=== PATIENT | male | born 1935 | race Caucasian/White ===

== ENCOUNTER 2017-03-29 11:20 | Inpatient (IN) | payer MEDICARE ==
[2017-03-29] MEDS ORDERED: Aspirin Low Dose CHEW TAB* 81 MG PO ONE (11:25)
[2017-03-29 12:05] LABS: Hematocrit 40 % (42-52); Hemoglobin 13.3 g/dl (14.0-18.0); Mean Corpuscular HGB Conc 33 g/dl (31-36); Mean Corpuscular Hemoglobin 33 pg (27-31); Mean Corpuscular Volume 99 fL (80-94); Mean Platelet Volume 7 um3 (7.4-10.4); Red Blood Count 4.06 10^6/ul (4.0-5.4); Red Cell Distribution Width 17 % (10.5-15); White Blood Count 13.5 10^3/ul (3.5-10.8)
[2017-03-29 12:18] LABS: BUN/Creatinine Ratio 21.1 (8-20); Potassium 4.1 mmol/L (3.5-5.0)
[2017-03-29 12:19] LABS: Albumin 3.9 g/dL (3.2-5.2); Calcium 9.5 mg/dL (8.6-10.3); EGFR African American 83.5 (>60); EGFR Non-African American 64.9 (>60); Total Bilirubin 1.1 mg/dL (0.2-1.0); Total Protein 6.9 g/dL (6.4-8.9)
[2017-03-29 12:24] LABS: Troponin I 0.14 ng/mL (<0.04)
--- NOTE | 2017-03-29 12:35 | RAD ---
INDICATION: Chest pain COMPARISON: None. TECHNIQUE: Single AP portable view of the chest was obtained. FINDINGS: Image quality is compromised due to the relative inferiority of a portable chest x-ray. There is moderate cardiomegaly as well as calcification overlying the arch of the aorta. The pulmonary vasculature appears engorged and indistinct. There is faint increased cortical density bilaterally. There is bibasilar costophrenic angle blunting. Visualized bones are normal for the patient's age. IMPRESSION: In the correct clinical setting the chest x-ray findings are most consistent with cardiogenic pulmonary edema.
[2017-03-29 13:05] LABS: T4 7.38 mcg/mL (6.09-12.23)
[2017-03-29 13:09] LABS: TSH (Thyroid Stimulating Horm) 2.38 mcIU/mL (0.34-5.60)
[2017-03-29] MEDS ORDERED: Propranolol TAB* 60 MG PO SCH (14:00)
[2017-03-29] MEDS ORDERED: Furosemide IV* 10 MG/ML VIAL (40 MG) IV SCH (14:00)
[2017-03-29] MEDS: Allopurinol TAB* 300 MG PO SCH (14:32)
[2017-03-29] MEDS: Apixaban* 5 MG TAB PO SCH ×2 (14:32→19:45)
[2017-03-29] MEDS: Ziprasidone * 20 MG CAP (generic Geodon) PO SCH ×2 (14:32→22:36)
[2017-03-29] MEDS: Polyethylene Glycol 3350* 17 GM PACKET PO SCH (14:32)
[2017-03-29] MEDS: Metoprolol Tartrate TAB* 25 MG PO SCH ×2 (14:49→23:47)
[2017-03-29 15:02] LABS: HDL Cholesterol 41.2 mg/dL
[2017-03-29 15:37] LABS: Urine Bacteria Absent (Absent); Urine Bilirubin Negative (Negative); Urine Glucose Negative (Negative); Urine Nitrite Negative (Negative)
[2017-03-29] MEDS ORDERED: cefTRIAXone VIAL(*) 1,000 MG in NS 0.9% 50 ML* 50 ML IVPB SCH (16:30)
[2017-03-29] MEDS: Atorvastatin* 80 MG TAB PO SCH ×2 (16:56→17:03)
[2017-03-29] MEDS ORDERED: Atorvastatin* 20 MG TAB PO SCH (18:00)
--- NOTE | 2017-03-29 18:18 | ED ---
Sebastian Rosa Angela, scribed for Michael Rivas MD on 03/29/17 at 1205 . Neurological HPI - HPI Summary HPI Summary: This pt is a 81 y/o male presenting to [facility] via EMS from home c/o increased weakness for the past several weeks. He reports he couldn't get off the toilet seat this morning. Son states that last night before bed the pt was panting and clearing his throat a lot. This morning, son notes the pt continued to pant. Son reports that he tried getting the pt off the toilet this morning with a towel but noticed the pt's legs were shaking and couldn't ambulate with his walker. Per son, pt normally drinks a glass of cranberry juice and eats a bowel of cereal in the mornings. Son states he also typically drinks a glass of milk with his dinner. Son notes that the pt has not been finishing all of his fluids every day. Pt usually gets up from bed at 10:00 everyday. Pt is anticoagulated on Eliquis. PMHx includes atrial fibrillation. - History of Current Complaint Chief Complaint: EDWeakness Stated Complaint: AFIB Time Seen by Provider: 03/29/17 11:25 Hx Obtained From: Patient Onset/Duration: Started days ago, Still Present, Worse Since - today Timing: Constant Neurological Deficit Location: Generalized, RLE, LLE Pain Intensity: 0 Character: Weak Associated Signs and Symptoms: Positive: Weakness, Decreased Oral Intake - fluids. Negative: Loss of Consciousness Related Hx: Anticoagulants - Eliquis - Allergy/Home Medications Allergies/Adverse Reactions: Allergies Allergy/AdvReac Type Severity Reaction Status Date / Time No Known Allergies Allergy Verified 03/29/17 11:27 Home Medications: Home Medications Allopurinol TAB* [Zyloprim 300 MG TAB*] 300 mg PO DAILY 03/29/17 [History Confirmed 03/29/17] Apixaban* [Eliquis*] 5 mg PO BID 03/29/17 [History Confirmed 03/29/17] Atorvastatin* [Lipitor*] 20 mg PO QPM 03/29/17 [History Confirmed 03/29/17] DULoxetine DR CAP* [Cymbalta CAP*] 60 mg PO DAILY 03/29/17 [History Confirmed ] Eszopiclone TAB(NF) [Lunesta TAB(NF)] 3 mg PO BEDTIME 03/29/17 [History Confirmed 03/29/17] Famotidine TAB* [Pepcid 20 MG TAB*] 40 mg PO BEDTIME 03/29/17 [History Confirmed 03/29/17] Hydrocodone-Acetaminophen [Hydrocodone Bitartrate/AC 7.5-325 mg] 1 tab PO Q6HR 03/29/17 [History Confirmed 03/29/17] Mirtazapine TAB* [Remeron TAB*] 60 mg PO BEDTIME 03/29/17 [History Confirmed 06/14] Polyethylene Glycol 3350* [Miralax*] 17 gm PO DAILY 03/29/17 [History Confirmed 03/29/17] Propranolol TAB* [Inderal TAB*] 60 mg PO DAILY 03/29/17 [History Confirmed 03/29] Ramipril CAP* [Altace CAP*] 20 mg PO BEDTIME 03/29/17 [History Confirmed ] Ziprasidone * [Geodon (generic) *] 40 mg PO BID 03/29/17 [History Confirmed 06/14] celeCOXIB CAP* [CeleBREX CAP*] 200 mg PO DAILY 03/29/17 [History Confirmed 03/29] PMH/Surg Hx/FS Hx/Imm Hx Endocrine/Hematology History: Reports: Hx Diabetes Cardiovascular History: Reports: Hx Atrial Fibrillation, Hx Hypertension Musculoskeletal History: Reports: Hx Gout Psychiatric History: Reports: Hx Anxiety, Hx Depression Infectious Disease History: No Infectious Disease History: Denies: Traveled Outside the [place] in Last 30 Days - Social History Alcohol Use: None Substance Use Type: Reports: None Smoking Status (MU): Never Smoked Tobacco Review of Systems Constitutional: Other - decreased fluid intake Negative: Fever, Chills Eyes: Negative ENT: Negative Negative: Chest Pain Respiratory: Other - panting Musculoskeletal: Other - legs shaking Neurological: Other - inability to ambulate Positive: Weakness All Other Systems Reviewed And Are Negative: Yes Physical Exam - Summary Physical Exam Summary: VITAL SIGNS: Reviewed. GENERAL: Patient is an elderly and fragile male who is lying comfortable in the stretcher. Patient is not in any acute respiratory distress. HEAD AND FACE: No signs of trauma. No ecchymosis, hematomas or skull depressions. No sinus tenderness. EYES: PERRLA, EOMI x 2, No injected conjunctiva, no nystagmus. EARS: Hearing grossly intact. Ear canals and tympanic membranes are within normal limits. MOUTH: Oropharynx within normal limits. NECK: Supple, trachea is midline, no adenopathy, no JVD, no carotid bruit, no c- spine tenderness, neck with full ROM. CHEST: Symmetric, no tenderness at palpation LUNGS: Clear to auscultation bilaterally. No wheezing or crackles. CVS: Irregularly irregular rate and rhythm, S1 and S2 present, no murmurs or gallops appreciated. ABDOMEN: Soft, non-tender. No signs of distention. No rebound no guarding, and no masses palpated. Bowel sounds are normal. EXTREMITIES: FROM in all major joints, no edema, no cyanosis or clubbing. NEURO: Alert and oriented x 3. No acute neurological deficits. Speech is normal and follows commands. SKIN: Dry and warm Triage Information Reviewed: Yes Vital Signs On Initial Exam: Initial Vitals Temp Pulse Resp BP Pulse Ox 98.4 F 64 17 170/62 89 03/29/17 11:26 03/29/17 11:26 03/29/17 11:26 03/29/17 11:26 03/29/17 11:26 Vital Signs Reviewed: Yes Diagnostics - Vital Signs Vital Signs Temp Pulse Resp BP Pulse Ox 03/29/17 11:26 98.4 F 64 17 170/62 89 - Laboratory Lab Results: Lab Results 03/29/17 03/29/17 03/29/17 Range/Units 11:49 11:49 11:49 WBC 13.5 H (3.5-10.8) 10^3/ul RBC 4.06 (4.0-5.4) 10^6/ul Hgb 13.3 L (14.0-18.0) g/dl Hct 40 L (42-52) % MCV 99 H (80-94) fL MCH 33 H (27-31) pg MCHC 33 (31-36) g/dl RDW 17 H (10.5-15) % Plt Count 183 (150-450) 10^3/ul MPV 7 L (7.4-10.4) um3 Neut % (Auto) 85.8 H (38-83) % Lymph % (Auto) 8.4 L (25-47) % Person % (Auto) 5.0 (1-9) % Eos % (Auto) 0.3 (0-6) % Baso % (Auto) 0.5 (0-2) % Absolute Neuts (auto) 11.6 H (1.5-7.7) 10^3/ul Absolute Lymphs (auto) 1.1 (1.0-4.8) 10^3/ul Absolute Monos (auto) 0.7 (0-0.8) 10^3/ul Absolute Eos (auto) 0 (0-0.6) 10^3/ul Absolute Basos (auto) 0.1 (0-0.2) 10^3/ul Absolute Nucleated RBC 0 10^3/ul Nucleated RBC % 0 INR (Anticoag Therapy) 1.25 H (0.77-1.02) APTT 27.1 (26.0-36.3) seconds Sodium (133-145) mmol/L Potassium (3.5-5.0) mmol/L Chloride (101-111) mmol/L Carbon Dioxide (22-32) mmol/L Anion Gap (2-11) mmol/L BUN (6-24) mg/dL Creatinine (0.67-1.17) mg/dL Est GFR ( Amer) (>60) Est GFR (Non-Af Amer) (>60) BUN/Creatinine Ratio (8-20) Glucose (70-100) mg/dL Lactic Acid (0.5-2.0) mmol/L Calcium (8.6-10.3) mg/dL Total Bilirubin (0.2-1.0) mg/dL AST (13-39) U/L ALT (7-52) U/L Alkaline Phosphatase (34-104) U/L Total Creatine Kinase (10-223) U/L CK-MB (CK-2) (0.6-6.3) ng/mL Troponin I (<0.04) ng/mL B-Natriuretic Peptide 512 H ( - 100) pg/mL Total Protein (6.4-8.9) g/dL Albumin (3.2-5.2) g/dL Globulin (2-4) g/dL Albumin/Globulin Ratio (1-3) TSH (0.34-5.60) mcIU/mL Thyroxine (T4) (6.09-12.23) mcg/mL 03/29/17 03/29/17 Range/Units 11:49 11:49 WBC (3.5-10.8) 10^3/ul RBC (4.0-5.4) 10^6/ul Hgb (14.0-18.0) g/dl Hct (42-52) % MCV (80-94) fL MCH (27-31) pg MCHC (31-36) g/dl RDW (10.5-15) % Plt Count (150-450) 10^3/ul MPV (7.4-10.4) um3 Neut % (Auto) (38-83) % Lymph % (Auto) (25-47) % Person % (Auto) (1-9) % Eos % (Auto) (0-6) % Baso % (Auto) (0-2) % Absolute Neuts (auto) (1.5-7.7) 10^3/ul Absolute Lymphs (auto) (1.0-4.8) 10^3/ul Absolute Monos (auto) (0-0.8) 10^3/ul Absolute Eos (auto) (0-0.6) 10^3/ul Absolute Basos (auto) (0-0.2) 10^3/ul Absolute Nucleated RBC 10^3/ul Nucleated RBC % INR (Anticoag Therapy) (0.77-1.02) APTT (26.0-36.3) seconds Sodium 141 (133-145) mmol/L Potassium 4.1 (3.5-5.0) mmol/L Chloride 107 (101-111) mmol/L Carbon Dioxide 27 (22-32) mmol/L Anion Gap 7 (2-11) mmol/L BUN 23 (6-24) mg/dL Creatinine 1.09 (0.67-1.17) mg/dL Est GFR ( Amer) 83.5 (>60) Est GFR (Non-Af Amer) 64.9 (>60) BUN/Creatinine Ratio 21.1 H (8-20) Glucose 144 H (70-100) mg/dL Lactic Acid 1.6 (0.5-2.0) mmol/L Calcium 9.5 (8.6-10.3) mg/dL Total Bilirubin 1.10 H (0.2-1.0) mg/dL AST 19 (13-39) U/L ALT 18 (7-52) U/L Alkaline Phosphatase 84 (34-104) U/L Total Creatine Kinase 65 (10-223) U/L CK-MB (CK-2) 2.6 (0.6-6.3) ng/mL Troponin I 0.14 H* (<0.04) ng/mL B-Natriuretic Peptide ( - 100) pg/mL Total Protein 6.9 (6.4-8.9) g/dL Albumin 3.9 (3.2-5.2) g/dL Globulin 3.0 (2-4) g/dL Albumin/Globulin Ratio 1.3 (1-3) TSH 2.38 (0.34-5.60) mcIU/mL Thyroxine (T4) 7.38 (6.09-12.23) mcg/mL Result Diagrams: 03/29/17 11:49 03/29/17 11:49 Lab Statement: Any lab studies that have been ordered have been reviewed, and results considered in the medical decision making process. - Radiology Chest XR Xray Interpretation: Positive (See Comments) - IMPRESSION: In the correct clinical setting the chest x-ray findings are most consistent with cardiogenic pulmonary edema. ED physician has reviewed this radiology report and agrees. Radiology Interpretation Completed By: Radiologist - EKG 1131 Cardiac Rate: NL EKG Rhythm: Atrial Fibrillation - at 60 bpm EKG Interpretation: Right bundle branch block Course/Dx - Course Assessment/Plan: This pt is a 81 y/o male presenting to [facility] via EMS from home c/o increased weakness for the past several weeks. He reports he couldn't get off the toilet seat this morning. Son states that last night before bed the pt was panting and clearing his throat a lot. This morning, son notes the pt continued to pant. Son reports that he tried getting the pt off the toilet this morning with a towel but noticed the pt's legs were shaking and couldn't ambulate with his walker. Per son, pt normally drinks a glass of cranberry juice and eats a bowel of cereal in the mornings. Son states he also typically drinks a glass of milk with his dinner. Son notes that the pt has not been finishing all of his fluids every day. Pt usually gets up from bed at 10:00 everyday. Pt is anticoagulated on Eliquis. PMHx includes atrial fibrillation. Test results without any significant abnormalities except for slight anemia, WBC of 13.5, glucose of 144, and troponin is 0.14. Urinalysis is negative for UTI. Chest XR shows in the correct clinical setting the chest x-ray findings are most consistent with cardiogenic pulmonary edema. In the ED course, the pt was given IV fluids. The pt continues to be hemodynamically stable. I discussed my findings and test results with Dr. Cohen, hospitalist, who accepted the pt for admission. Pt is hemodynamically stable and pain free. - Differential Dx Differential Diagnoses Neuro: Positive: Benign Paroxysmal Positional Vertigo, Transient Ischemic Attack, Viral Syndrome - Diagnoses Provider Diagnoses: increased troponin, rule out acute coronary syndrome, Weakness - Physician Notifications Discussed Care Of Patient With: Ángel Cohen Time Discussed With Above Provider: 12:29 Instructed by Provider To: Other - I discussed the pt's case with Dr. Cohen, who has agreed to admit the pt. Discharge - Discharge Plan Condition: Stable Disposition: ADMITTED TO [facility] The documentation as recorded by the Sebastian mazariegos Angela accurately reflects the service I personally performed and the decisions made by me, Michael Rivas MD.
--- NOTE | 2017-03-29 18:42 | HP ---
HISTORY AND PHYSICAL: DATE OF ADMISSION: 03/29/17 ADMITTING PROVIDER: Ángel Cohen MD. PRIMARY CARE PHYSICIAN: Dr. Marty Robertson CHIEF COMPLAINT: Inability to rise from toilet, shortness of breath, progressive weakness. HISTORY OF PRESENT ILLNESS: Ash Kirk is an 81-year-old male with a past medical history of atri al fibrillation, GERD, anxiety, depression, with history of suicide attempt 3 years ago, evidence of an inferior myocardial infarction, insomnia, former smoker, former alcoholic, gout, presenting with i nability to rise from his toilet on the morning of admission. He reportedly had gotten progressively weaker over the last few days. The patient also notes that he was "panting and short of breath" sta rting the day prior to admission or 2 days prior to admission. He has had no bowel movements for the last 5 to 6 days. When EMS arrived, he was noted to be desatting at 91% to 86%, put on 2 L. He den ies any chest pressure or chest pain or radiation of pain to the arms, neck, or jaw. No nausea or vo miting, but he did have a general sense of feeling unwell that he was unable to further describe. He does not like to ambulate often per his caregiver, Sung Blanco, who has lived with him for the last 3 years and cared for him for the last 5 to 6. His routine is basically to get up in the morning, errol payton a meal, sit in his chair, have dinner, go to bed around 5 p.m. until the next day 10 a.m., though shira payton does have restless sleep. He stays so much time in bed because it "keeps him from drinking alcohol " and is asking for a double dose of his Lunesta 3 mg q.h.s. Upon presentation to [facility] ED, he did hav e elevated troponin at 0.14, evidence of inferior infarction, with Q waves in III and aVF. A right b undle- branch block, left axis deviation, and atrial fibrillation. He denies any palpitations or kno wn RVR episodes. He is on Eliquis, having switched from Coumadin approximately a few months ago. On ly other change was doubling of his Geodon dose for some sensations of tremors, which also now is wor se this morning than baseline. The patient has a hospital bed at home in which he sleeps in a reclined position. He is very uncomfor table lying down flat. Vital signs are blood pressure 170/62, respiratory rate 25, heart rate 56, temperature 98.5, but 99.6 initially with EMS. His BNP was elevated to 512. He is being admitted for CHF and elevated troponi n, with ACS rule out. PAST SURGICAL HISTORY: Status post appendectomy and cataract surgery. 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 Denies seeing any specialist for any reason. MEDICATIONS: Include: 1. Ramipril 20 mg q.p.m. 2. Propranolol 60 mg q.a.m. 3. Ziprasidone HCl 40 mg b.i.d. 4. Mirtazapine 60 mg q.p.m. 5. Famotidine 40 mg p.m. 6. Celecoxib 200 mg q.a.m. 7. Hydrocodone/Acetaminophen 7.5/325 p.r.n. 8. Eliquis 5 mg b.i.d. 9. Lunesta 3 mg q.p.m. 10. Allopurinol 300 mg q.a.m. 11. Atorvastatin 20 mg q.p.m. 12. Duloxetine HCl 60 mg q.p.m. 13. Polyethylene glycol p.r.n. ALLERGIES: No known drug allergies. FAMILY HISTORY: Dad had a heart attack. Mother of end-stage renal disease after refusing trans plant. SOCIAL HISTORY: Lives with caregiver, Sung Blanco. His medical surrogate is Az Kirk, his cous in. He lives in [place], [place]. Former heavy smoker, as teenager, between 90 and 530-utic-xyyc hi story, max was 5 packs per day. He also is a former alcoholic, stopped drinking some time ago. REVIEW OF SYSTEMS: Complete 14-point review of systems is negative, except as per HPI. PHYSICAL EXAMINATION GENERAL APPEARANCE: No acute distress. Sitting in hospital bed, with unlabored breathing. VITAL SIGNS: Blood pressure 170/62, respiratory rate between 17 and 25, temperature 98.4, satting 89 % initially, currently on 2 L nasal cannula satting 95%. HEENT: Normocephalic, atraumatic. Pupils are equal, round, and reactive to light. Extraocular motio ns are intact. No cervical lymphadenopathy. Moist mucous membranes. RESPIRATORY: Rales bilaterally to mid lungs. No rhonchi or wheezing. CARDIOVASCULAR: Regular rate and rhythm. No murmurs, rubs or gallops appreciated. ABDOMEN: Soft, distended/obese. No tenderness to palpation, status post appendectomy scar in the ri ght lower quadrant. No rebound. No guarding. EXTREMITIES: 2+ bilateral edema up the shins. Warm. PSYCHIATRIC: Nonpressured speech. Attests that if he had a pistol, he probably would consider endin g his life, but has no other active plans. He has lived a content life and has no hobbies that he cu rrently derives pleasure from. Would never hurt anyone he says. SKIN: Slight abrasions to the right lower anterior varela, very mild. No erythema, warmth or tenderne ss. DIAGNOSTIC STUDIES/LAB DATA: White count 13.5, hemoglobin 13.3, hematocrit 40, platelets 193. INR 1.25. Sodium 141, potassium 4.1, chloride 107, BUN 23, creatinine 1.09, glucose 144. Lactic acid 1. 6. Total bili 1.10, AST 19, ALT 18, alk phos 84. Troponin 0.14. BNP 512. TSH 2.38, T4 is 7.38. X-ray was consistent with cardiogenic pulmonary edema with bibasilar costophrenic angle blunting and engorged pulmonary vasculature. EKG demonstrated inferior Q waves in III and aVF, left axis deviation, right bundle- branch block, QR interval 136. No other ST changes. ASSESSMENT AND PLAN: Ash Kirk is an 81-year-old male with PMH at least of an inferior heart att ack and AFib, presenting with signs and symptoms of congestive heart failure, initial complaint of we akness and generally feeling unwell, elevated troponin of 0.14. This is the first time he has been i n our system, although he reports admission for suicide attempt 3 years ago. He does have short term memory issues, mild dementia. He is being admitted for CHF and ACS rule out, initial troponin 0.14, no acute ischemic changes. We will get that echocardiogram ordered, Lasix 40 mg IV, use strict I's and O's, daily weights. We will continue his propranolol beta-gabe, he is status post aspirin 324 mg in the emergency room, we will continue 81 mg daily. The patient denies any chest pain or pressu re at the moment, just some shortness of breath. Continue his atorvastatin 20 mg daily. Get a lipid panel now as he has not eaten since last night and A1c. He is hypertensive, continue his ramipril 2 0 mg at bedtime. For his AFib, continue his Eliquis 5 mg p.o. b.i.d. For gout, continue his allopur inol 300 mg p.o. daily. For his constipation, with no bowel movement in 5 to 6 days, continue his vasquez e MiraLAX. Start Colace and Senokot tabs and consider additional bowel regimen if these are not effe ctive by the end of today. He is going to be ordered for physical therapy. He is expressing a imelda e to move to a fdc as he says, "I can't handle things like this". On further inquiry, this is the first time he has been hospitalized in the last 3 years since his suicide attempt, though he i s a somewhat poor historian, especially in regard to timelines, although he is oriented to the [address] His medical surrogate is his cousin, Az Kirk. He desires to be at DNR/DNI. He does not have a MOLST form with him currently. He could have another EKG in the morning or with any evidence of chest pain developing. He can have sips of water for now. Consider restarting a diet l ater on this afternoon if still chest pain free, but likely n.p.o. at midnight for possible stress te st tomorrow if indicated. For his anxiety and depression, continue his Geodon 40 mg p.o. b.i.d. and his Remeron 60 mg q.h.s. For his insomnia, continue 3 mg p.o. Lunesta q.h.s. Also continue his dulo xetine 60 mg p.o. daily for his depression. [id number]/[facility] #: [id number]
[2017-03-29] MEDS ORDERED: Furosemide IV* 10 MG/ML VIAL (40 MG) ONE (18:57)
[2017-03-29] MEDS ORDERED: Albuterol 2.5 MG/3 ML NEB.SOL* (0.083%) ONE (18:58)
[2017-03-29 19:22] LABS: Hematocrit 40 % (42-52); Mean Corpuscular HGB Conc 33 g/dl (31-36); Mean Corpuscular Hemoglobin 33 pg (27-31); Mean Corpuscular Volume 100 fL (80-94); Mean Platelet Volume 8 um3 (7.4-10.4); Red Blood Count 3.95 10^6/ul (4.0-5.4); Red Cell Distribution Width 17 % (10.5-15); White Blood Count 16.4 10^3/ul (3.5-10.8)
--- NOTE | 2017-03-29 19:22 | RAD ---
INDICATION: Shortness of breath. COMPARISON: Same day chest x-ray acquired at 1152 hours TECHNIQUE: Single AP portable view of the chest was obtained at 1908 hours. FINDINGS: Image quality is compromised due to the relative inferiority of a portable chest x-ray. Again seen is [id number] cardiomegaly and coarse calcification overlying the arch of the aorta. Pulmonary vasculature is indistinct and mildly engorged. The left hemidiaphragm is faintly indistinct. IMPRESSION: Chest x-ray findings are most consistent with cardiogenic pulmonary edema with no significant change since the 1152 hours chest x-ray.
[2017-03-29 19:25] LABS: BUN/Creatinine Ratio 18.3 (8-20); Calcium 9.6 mg/dL (8.6-10.3); EGFR African American 70.6 (>60); EGFR Non-African American 54.9 (>60); Globulin 3.3 g/dL (2-4); Potassium 4.7 mmol/L (3.5-5.0); Total Bilirubin 0.9 mg/dL (0.2-1.0); Total Protein 7.3 g/dL (6.4-8.9)
[2017-03-29 19:27] LABS: Troponin I 0.19 ng/mL (<0.04)
[2017-03-29] MEDS ORDERED: Vancomycin per Pharmacy* NOTE FOLLOW UP PRN (19:28)
[2017-03-29] MEDS: Cefepime(*) 1 GM in NS 0.9% 50 ML* 50 ML IVPB SCH (19:40)
[2017-03-29 19:41] LABS: EPAP 10; FIO2 100; IPAP 18
[2017-03-29] MEDS ORDERED: Albuterol 2.5 MG/3 ML NEB.SOL* (0.083%) INH ONE (19:42)
[2017-03-29 19:45] LABS: PCO2 Arterial 35 mmHg (35-45)
[2017-03-29] MEDS ORDERED: Vancomycin(*) 1,500 MG in NS 0.9% 250 ML* 250 ML IVPB ONE (20:00)
[2017-03-29] MEDS ORDERED: Acetaminophen TAB* 325 MG ONE (20:05)
[2017-03-29] MEDS ORDERED: Bisacodyl SUPP* 10 MG SUPP PR ONE (20:13)
[2017-03-29] MEDS: Zolpidem TAB* 10 MG PO SCH (20:41)
[2017-03-29] MEDS: Famotidine TAB* 20 MG PO SCH (20:41)
[2017-03-29] MEDS: Mirtazapine TAB* 15 MG PO SCH (20:41)
[2017-03-29] MEDS ORDERED: Ramipril CAP* 10 MG PO SCH (21:00)
[2017-03-30] MEDS: Nystatin TOP POWDER* 15 GM BTL TOPICAL SCH ×3 (00:13→20:45)
[2017-03-30] MEDS: Furosemide IV* 10 MG/ML VIAL (40 MG) IV SLOW PU SCH ×2 (01:11→05:50)
--- NOTE | 2017-03-30 05:51 | PN ---
Progress Note - Progress Note Date of Service: 03/30/17 Note: Paged for crackles, increase wob and altered mental status. Patient alerts to voice but unable to communicate. Coarse rhonchorous breath sounds b/l. Will give Lasix 7am dose now, get abg and put on Bipap. If he does not tolerate bipap will switch to vapotherm.
[2017-03-30] MEDS ORDERED: Vancomycin Random Level* NOTE FOLLOW UP ONE (06:00)
[2017-03-30 06:05] LABS: PCO2 Arterial 44 mmHg (35-45)
[2017-03-30 06:46] LABS: Hematocrit 37 % (42-52); Mean Corpuscular HGB Conc 33 g/dl (31-36); Mean Corpuscular Hemoglobin 33 pg (27-31); Mean Corpuscular Volume 99 fL (80-94); Mean Platelet Volume 8 um3 (7.4-10.4); Red Blood Count 3.69 10^6/ul (4.0-5.4); Red Cell Distribution Width 17 % (10.5-15)
[2017-03-30 06:58] LABS: EGFR African American 81.8 (>60); EGFR Non-African American 63.6 (>60); Vancomycin Random 10.8 mcg/mL
[2017-03-30 07:54] LABS: Calcium 7.7 mg/dL (8.6-10.3); Potassium 3.2 mmol/L (3.5-5.0)
[2017-03-30 08:18] LABS: BUN/Creatinine Ratio 18.9 (8-20)
[2017-03-30 08:46] LABS: Magnesium 1.5 mg/dL (1.9-2.7)
[2017-03-30] MEDS ORDERED: Vancomycin(*) 750 MG in NS 0.9% 250 ML* 250 ML IVPB SCH (09:00)
[2017-03-30] MEDS ORDERED: DULoxetine DR CAP* 30 MG CAP.DR PO SCH (09:00)
[2017-03-30] MEDS: Ziprasidone * 20 MG CAP (generic Geodon) PO SCH ×2 (09:17→20:45)
[2017-03-30] MEDS: Polyethylene Glycol 3350* 17 GM PACKET PO SCH (09:18)
[2017-03-30] MEDS: Aspirin Low Dose CHEW TAB* 81 MG PO SCH (09:18)
[2017-03-30] MEDS: Cefepime(*) 1 GM in NS 0.9% 50 ML* 50 ML IVPB SCH (09:18)
[2017-03-30] MEDS: KCL 20 MEQ/100 ML IVPREMIX* 20 MEQ/100 ML BAG IV SCH ×2 (09:19→12:09)
[2017-03-30] MEDS ORDERED: Magnesium Sulfate IV* 3 GM in NS 0.9% 100 ML* 100 ML IVPB ONE (10:17)
[2017-03-30] MEDS ORDERED: Magnesium Sulfate 2 GM IV IVPB ONE (11:00)
[2017-03-30] MEDS ORDERED: Magnesium Sulfate 1 GM IV* 1 GM/100 ML BAG IV ONE (12:00)
[2017-03-30] MEDS: Allopurinol TAB* 300 MG PO SCH (12:09)
[2017-03-30] MEDS: Bumetanide IV* 0.25 MG/ML 4 ML VIAL SLOW PUSH SCH ×3 (12:09→23:19)
[2017-03-30] MEDS: Potassium Chlor TAB* 20 MEQ TAB.ER PO SCH ×2 (12:10→14:58)
--- NOTE | 2017-03-30 15:24 | ECHO ---
Patient: JERMAINE ALM [facility] Rec#: [id number] : 1935 Date: 03/30/2017 Age: 81y Height: 182.88 cm / 72.0 in Weight: 122.47 kg / 269.9 lbs Sex: M BSA: 2.42 Room#: [facility] Admit Date#: 03/29/2017 Type: Inpatient Referring: Ángel Cohen Reading: Deni Dominguez MD Application Security Specialist: Anusha [facility]UN[facility] Transthoracic Echocardiogram Indication: Acute CHF BP: 123/95 HR: 56 Rhythm: Bradycardia Findings History: A-Fib, former smoker, former ETOH. Technical Comments: The study quality is fair. The study is technically limited due to patient body habitus. Completed at 1015. Left Ventricle: The left ventricular chamber size is normal. Severe concentric left ventricular hypertrophy is observed. There is global hypokinesis of the left ventricle with minor regional variation.relative hypokinesis of the inferobasal segments comparted to the other regions. There is moderately decreased left ventricular systolic function. The estimated ejection fraction is 40-45%. There is septal flattening of the interventricular septum consistent with right ventricular volume or pressure overload. There is no consistent Doppler evidence of clinically significant diastolic dysfunction. Left Atrium: The left atrium is severely dilated. Right Ventricle: The right ventricle wall thickness is mildly increased. The right ventricle is moderate to severely dilated. The right ventricular global systolic function is mildly reduced. Right Atrium: The right atrial cavity size is severely dilated. Aortic Valve: The aortic valve is trileaflet. The aortic valve leaflets are mildly thickened. There is trace to mild aortic regurgitation. There is no evidence of aortic stenosis. Mitral Valve: The mitral valve leaflets are mildly thickened. There is mild mitral regurgitation. There is no evidence of mitral stenosis. Tricuspid Valve: The tricuspid valve leaflets are normal. There is moderate tricuspid regurgitation. The right ventricular systolic pressure is estimated at 56 mmHg. There is evidence of moderate pulmonary hypertension. There is no tricuspid stenosis. Pulmonic Valve: The pulmonic valve appears normal. There is a trace pulmonic regurgitation. There is no pulmonic stenosis. Pericardium: There is no significant pericardial effusion. A pericardial fat pad is visualized. Aorta: There is mild dilatation of the ascending aorta. There is no dilatation of the aortic arch. There is mild dilatation of the aortic root. Pulmonary Artery: The main pulmonary artery appears normal. Venous: The inferior vena cava is dilated. There is a greater than 50% respiratory change in the inferior vena cava dimension. Summary: There was not any prior study for comparison. Conclusions There is global hypokinesis of the left ventricle with minor regional variation; relative hypokinesis of the inferobasal segments comparted to the other regions. There is moderately decreased left ventricular systolic function. The estimated ejection fraction is 40-45%. There is septal flattening of the interventricular septum consistent with right ventricular volume or pressure overload. The left atrium is severely dilated. The right ventricle wall thickness is mildly increased. The right ventricle is moderate to severely dilated. The right ventricular global systolic function is mildly reduced. The right atrial cavity size is severely dilated. The aortic valve leaflets are mildly thickened. There is trace to mild aortic regurgitation. There is mild mitral regurgitation. There is moderate tricuspid regurgitation. The right ventricular systolic pressure is estimated at 56 mmHg. There is evidence of moderate pulmonary hypertension. There is mild dilatation of the ascending aorta. There is mild dilatation of the aortic root. Measurements Name Value Normal Range RVIDd (AP) 2D 3.3 cm (0.9 - 2.6) RVDdMajor (2D) 5.9 cm (2.2 - 4.4) RAd ISD 4CH 7.7 cm (3.4 - 4.9) RA (A4C)W 6 cm (2.9 - 4.6) IVSd (2D) 1.8 cm (0.6 - 1) LVPWd (2D) 1.7 cm (0.6 - 1) LVIDd (2D) 3.8 cm (3.6 - 5.4) LVIDs (2D) 2.9 cm - LV FS (2D) 23 % (25 - 45) Aortic Annulus 2.3 cm (1.4 - 2.6) Ao root diameter (2D) 3.6 cm (2.1 - 3.5) Ascending Ao 3.8 cm (2.1 - 3.4) Aortic arch 2.9 cm (1.8 - 3.4) LA dimension (AP) 2D 4.6 cm (2.3 - 3.8) LAd ISD 4CH 7.9 cm (2.9 - 5.3) LA ISD 4CH W 6.2 cm (2.5 - 4.5) Name Value Normal Range LA ESV SP 4CH (A/L) 188 ml - LA ESV SP 2CH (A/L) 167 ml - LA ESV BP (A/L) 186 ml - LA ESV BP (A/L) index 77 ml/m2 - LA ESV SP 4CH (MOD) 177 ml - LA ESV SP 2CH (MOD) 149 ml - Name Value Normal Range MV E-wave Vmax 0.73 m/sec - MV deceleration time 260.65 msec - MV A-wave Vmax 0.2 m/sec - MV E:A ratio 3.6 ratio - LV septal e' Vmax 0.05 m/sec - LV lateral e' Vmax 0.06 m/sec - LV E:e' septal ratio 14.6 ratio - LV E:e' lateral ratio 12.17 ratio - Name Value Normal Range AV Vmax 1.16 m/sec - AV VTI 20.17 cm - AV peak gradient 5.41 mmHg - AV mean gradient 2.73 mmHg - LVOT Vmax 0.82 m/sec - LVOT VTI 13.58 cm - LVOT peak gradient 2.72 mmHg - LVOT mean gradient 1.34 mmHg - LARRY Vmax 0.61 m/sec - Name Value Normal Range TR Vmax 3.2 m/sec - TR peak gradient 41 mmHg - RAP 15 mmHg - RVSP 56 mmHg - IVC diameter 2.6 cm - Name Value Normal Range PV Vmax 0.82 m/sec - PV peak gradient 2.72 mmHg -
[2017-03-30] MEDS: Atorvastatin* 80 MG TAB PO SCH (18:36)
[2017-03-30] MEDS: Cefepime 1 GM in Dextrose(*) 1 GM/50 ML BAG IV SCH (20:16)
[2017-03-30] MEDS: Famotidine TAB* 20 MG PO SCH (20:45)
[2017-03-30] MEDS: Zolpidem TAB* 10 MG PO SCH (20:45)
[2017-03-30] MEDS: Mirtazapine TAB* 15 MG PO SCH (20:45)
[2017-03-30] MEDS: Acetaminophen TAB* 325 MG PO PRN (21:27)
--- NOTE | 2017-03-30 23:46 | PN ---
Subjective Date of Service: 03/30/17 Interval History: hematuria then CAT call yesterday for acute hypoxia, rigors and eventually ( high fevers by urine probe but not skin probe) at shift change, transferred to ICU, started on cefepime, vancomycin. Lactic acidosis with improvement. Aggressively diuresed, negative 2L. Eliquis held. Wet sounding and more somulent at 5am, got lasix 1 hour early, put on bipap. ABG 7.44/44/179. Able to come off by mid morning. Feeling much better. Procalcitonin very high. Ecoli >100K on UCx. Fevers continue. ECHO with LVH, EF 40-45%, RV pressure or volume overload, mod TVR. Objective Active Medications: Acetaminophen (Tylenol Tab*) 650 mg PO Q6H PRN PRN Reason: FEVER Last Admin: 03/30/17 21:27 Dose: 650 mg Hydrocodone Bitart/Acetaminophen (Ham[place] 5-325 Tab*) 1 tab PO Q6H PRN PRN Reason: PAIN Allopurinol (Zyloprim Tab*) 300 mg PO DAILY [facility] Last Admin: 03/30/17 12:09 Dose: 300 mg Aspirin (Aspirin Low Dose Tab*) 81 mg PO DAILY [facility] Last Admin: 03/30/17 09:18 Dose: 81 mg Atorvastatin Calcium (Lipitor*) 80 mg PO 1700 [facility] Last Admin: 03/30/17 18:36 Dose: 80 mg Bumetanide (Bumex*) 2 mg SLOW PUSH Q6H [facility] Duloxetine HCl (Cymbalta Cap*) 60 mg PO DAILY [facility] Stop: 03/30/17 23:59 Last Admin: 03/30/17 12:52 Dose: 60 mg Duloxetine HCl (Cymbalta Cap*) 60 mg PO DAILY [facility] Famotidine (Pepcid Tab*) 40 mg PO BEDTIME [facility] Last Admin: 03/30/17 20:45 Dose: 40 mg Cefepime HCl (Maxipime 1 Gm In Dextrose Duplex (*)) 1 gm in 50 mls @ 100 mls/ hr IV Q12H [facility] Last Admin: 03/30/17 20:16 Dose: 100 mls/hr Mirtazapine (Remeron Tab*) 45 mg PO BEDTIME [facility] Last Admin: 03/30/17 20:45 Dose: 45 mg Nystatin (Nystatin Top Powder*) 1 applic TOPICAL BID [facility] Last Admin: 03/30/17 20:45 Dose: 1 applic Pharmacy Profile Note (Vancomycin Trough Check) 1 note FOLLOW UP 829 ONE Stop: 04/01/17 08:31 Polyethylene Glycol/Electrolytes (Miralax*) 17 gm PO DAILY [facility] Last Admin: 03/30/17 09:18 Dose: 17 gm Ziprasidone (Geodon (Generic) *) 40 mg PO BID [facility] Last Admin: 03/30/17 20:45 Dose: 40 mg Zolpidem Tartrate (Ambien Tab*) 10 mg PO BEDTIME [facility] Last Admin: 03/30/17 20:45 Dose: 10 mg Vital Signs 03/29/17 03/29/17 03/30/17 23:46 23:59 00:00 Temperature 101.5 F 101.3 F 101.3 F Pulse Rate 56 50 63 Respiratory 24 25 23 Rate Blood Pressure 119/47 (mmHg) O2 Sat by Pulse 98 98 99 Oximetry 03/30/17 03/30/17 03/30/17 00:01 00:17 00:31 Temperature 101.3 F 101.5 F 101.5 F Pulse Rate 56 50 54 Respiratory 26 15 25 Rate Blood Pressure 111/53 138/47 123/60 (mmHg) O2 Sat by Pulse 99 99 99 Oximetry 03/30/17 03/30/17 03/30/17 00:45 01:00 01:01 Temperature 101.3 F 101.1 F 101.3 F Pulse Rate 51 52 52 Respiratory 22 27 28 Rate Blood Pressure 128/52 135/60 (mmHg) O2 Sat by Pulse 98 99 99 Oximetry 03/30/17 03/30/17 03/30/17 01:16 01:31 01:46 Temperature 101.3 F 100.9 F 100.9 F Pulse Rate 49 52 53 Respiratory 29 33 29 Rate Blood Pressure 135/51 141/64 129/59 (mmHg) O2 Sat by Pulse 99 99 98 Oximetry 03/30/17 03/30/17 03/30/17 02:00 02:01 02:17 Temperature 100.9 F 100.9 F 100.8 F Pulse Rate 53 54 49 Respiratory 27 28 26 Rate Blood Pressure 121/56 120/72 (mmHg) O2 Sat by Pulse 98 99 98 Oximetry 03/30/17 03/30/17 03/30/17 02:31 02:46 03:00 Temperature 100.8 F 100.8 F 100.8 F Pulse Rate 51 51 50 Respiratory 27 27 26 Rate Blood Pressure 131/64 144/57 (mmHg) O2 Sat by Pulse 99 98 99 Oximetry 03/30/17 03/30/17 03/30/17 03:01 03:16 03:31 Temperature 100.8 F 100.6 F 100.6 F Pulse Rate 52 50 47 Respiratory 27 26 24 Rate Blood Pressure 122/62 140/59 120/62 (mmHg) O2 Sat by Pulse 99 99 99 Oximetry 03/30/17 03/30/17 03/30/17 03:46 04:00 04:01 Temperature 100.4 F 100.4 F 100.4 F Pulse Rate 53 52 50 Respiratory 27 26 27 Rate Blood Pressure 136/53 136/49 (mmHg) O2 Sat by Pulse 99 99 99 Oximetry 03/30/17 03/30/17 03/30/17 04:16 04:30 04:46 Temperature 100.4 F 100.2 F 100.2 F Pulse Rate 51 54 49 Respiratory 25 27 28 Rate Blood Pressure 133/58 143/64 143/63 (mmHg) O2 Sat by Pulse 99 100 100 Oximetry 03/30/17 03/30/17 03/30/17 05:00 05:01 05:15 Temperature 100.2 F 100.2 F 100.0 F Pulse Rate 55 49 51 Respiratory 26 24 26 Rate Blood Pressure 133/65 150/56 (mmHg) O2 Sat by Pulse 100 100 100 Oximetry 03/30/17 03/30/17 03/30/17 05:30 05:46 06:00 Temperature 100.0 F 100.0 F 100.2 F Pulse Rate 51 51 48 Respiratory 25 25 25 Rate Blood Pressure 140/63 152/70 (mmHg) O2 Sat by Pulse 100 100 100 Oximetry 03/30/17 03/30/17 03/30/17 06:01 06:15 06:18 Temperature 100.2 F 100.2 F 100.2 F Pulse Rate 49 50 49 Respiratory 27 27 24 Rate Blood Pressure 125/95 145/65 154/65 (mmHg) O2 Sat by Pulse 100 100 100 Oximetry 03/30/17 03/30/17 03/30/17 06:21 06:31 06:46 Temperature 100.2 F 100.4 F 100.4 F Pulse Rate 51 53 50 Respiratory 21 27 23 Rate Blood Pressure 148/69 150/73 134/62 (mmHg) O2 Sat by Pulse 100 100 100 Oximetry 03/30/17 03/30/17 03/30/17 07:00 07:01 07:16 Temperature 100.4 F 100.4 F 100.4 F Pulse Rate 51 52 52 Respiratory 24 25 22 Rate Blood Pressure 144/69 149/68 (mmHg) O2 Sat by Pulse 100 100 100 Oximetry 03/30/17 03/30/17 03/30/17 07:31 07:46 08:00 Temperature 100.4 F 100.4 F 100.6 F Pulse Rate 52 63 53 Respiratory 16 23 23 Rate Blood Pressure 155/65 143/80 (mmHg) O2 Sat by Pulse 100 100 100 Oximetry 03/30/17 03/30/17 03/30/17 08:01 08:16 08:32 Temperature 100.6 F 100.6 F 100.6 F Pulse Rate 54 60 56 Respiratory 20 25 17 Rate Blood Pressure 161/72 166/80 163/69 (mmHg) O2 Sat by Pulse 100 100 91 Oximetry 03/30/17 03/30/17 03/30/17 08:47 09:00 09:01 Temperature 100.8 F 100.8 F 100.8 F Pulse Rate Respiratory 15 27 24 Rate Blood Pressure 130/68 128/65 (mmHg) O2 Sat by Pulse Oximetry 03/30/17 03/30/17 03/30/17 09:16 09:32 09:46 Temperature 100.6 F 95.0 F 99.5 F Pulse Rate 59 58 Respiratory 18 25 29 Rate Blood Pressure 131/57 150/73 166/68 (mmHg) O2 Sat by Pulse 96 94 Oximetry 03/30/17 03/30/17 03/30/17 10:00 10:01 10:16 Temperature 100.4 F 100.6 F 100.6 F Pulse Rate 61 59 59 Respiratory 26 29 31 Rate Blood Pressure 168/70 145/58 (mmHg) O2 Sat by Pulse 97 96 100 Oximetry 03/30/17 03/30/17 03/30/17 10:31 10:46 11:00 Temperature 100.6 F 96.8 F 99.1 F Pulse Rate 61 56 60 Respiratory 35 21 34 Rate Blood Pressure 147/62 115/60 120/56 (mmHg) O2 Sat by Pulse 97 95 97 Oximetry 03/30/17 03/30/17 03/30/17 11:15 11:31 11:46 Temperature 99.0 F 99.9 F 99.9 F Pulse Rate 57 57 56 Respiratory 27 17 26 Rate Blood Pressure 125/61 138/59 137/63 (mmHg) O2 Sat by Pulse 98 99 96 Oximetry 03/30/17 03/30/17 03/30/17 12:00 12:01 12:16 Temperature 99.7 F 99.3 F 100.0 F Pulse Rate 56 57 66 Respiratory 23 22 31 Rate Blood Pressure 125/64 143/74 (mmHg) O2 Sat by Pulse 98 96 95 Oximetry 03/30/17 03/30/17 03/30/17 12:32 12:46 13:00 Temperature 100.0 F 100.0 F 95.9 F Pulse Rate 59 54 63 Respiratory 32 33 27 Rate Blood Pressure 135/61 156/62 (mmHg) O2 Sat by Pulse 95 Oximetry 03/30/17 03/30/17 03/30/17 13:02 13:17 13:31 Temperature 90.5 F 64.8 F 100.2 F Pulse Rate 62 60 59 Respiratory 29 33 30 Rate Blood Pressure 162/64 139/55 141/61 (mmHg) O2 Sat by Pulse 95 96 Oximetry 03/30/17 03/30/17 03/30/17 13:46 14:00 15:00 Temperature 100.0 F 99.9 F 100.4 F Pulse Rate 61 61 Respiratory 33 34 29 Rate Blood Pressure 124/63 140/59 (mmHg) O2 Sat by Pulse 95 96 Oximetry 03/30/17 03/30/17 03/30/17 15:01 16:00 16:01 Temperature 100.8 F 101.7 F 101.7 F Pulse Rate 62 63 61 Respiratory 24 20 25 Rate Blood Pressure 156/65 163/73 (mmHg) O2 Sat by Pulse 92 97 97 Oximetry 03/30/17 03/30/17 03/30/17 17:00 17:01 18:00 Temperature 101.7 F 101.8 F 101.8 F Pulse Rate 64 61 62 Respiratory 18 13 25 Rate Blood Pressure 125/44 (mmHg) O2 Sat by Pulse 100 94 Oximetry 03/30/17 03/30/17 03/30/17 18:44 19:00 19:31 Temperature 102.0 F 102.0 F 102.2 F Pulse Rate 61 66 Respiratory 24 18 34 Rate Blood Pressure 150/65 111/82 (mmHg) O2 Sat by Pulse 95 82 Oximetry 03/30/17 03/30/17 03/30/17 20:00 20:02 21:00 Temperature 102.2 F 102.2 F 102.2 F Pulse Rate 67 68 64 Respiratory 32 32 35 Rate Blood Pressure 117/63 (mmHg) O2 Sat by Pulse 98 98 96 Oximetry 03/30/17 03/30/17 03/30/17 21:01 22:00 22:01 Temperature 102.2 F 102.2 F 102.2 F Pulse Rate 64 68 68 Respiratory 33 31 37 Rate Blood Pressure 137/62 142/62 (mmHg) O2 Sat by Pulse 96 96 96 Oximetry 03/30/17 03/30/17 23:00 23:01 Temperature 101.8 F 101.8 F Pulse Rate 69 69 Respiratory 24 24 Rate Blood Pressure 129/66 (mmHg) O2 Sat by Pulse 97 98 Oximetry Oxygen Devices in Use Now: Nasal Cannula Appearance: Much more comfortable appearing. Ears/Nose/Mouth/Throat: NL Teeth, Lips, Gums, Mucous Membranes Moist Neck: NL Appearance and Movements; NL JVP Respiratory: - - decreased at bases, less rales. No rhonchi or wheezing. Abdominal: NL Sounds; No Tenderness; No Distention, - - soft distended. Extremities: - - 1+ edema, improved. Skin: No Rash or Ulcers, No Nodules or Sclerosis Neurological: Alert and Oriented x 3 Lines/Tubes/Other Access: Clean, Dry and Intact Penaloza - pink urine Result Diagrams: 03/30/17 06:15 03/30/17 06:15 Additional Lab and Data: Laboratory Results - last 24 hr 03/30/17 03/30/17 03/30/17 05:56 06:15 06:15 WBC 15.0 H RBC 3.69 L Hgb 12.0 L Hct 37 L MCV 99 H MCH 33 H MCHC 33 RDW 17 H Plt Count 162 MPV 8 Neut % (Auto) 83.8 H Lymph % (Auto) 9.3 L Mcculloch % (Auto) 6.7 Eos % (Auto) 0 Baso % (Auto) 0.2 Absolute Neuts (auto) 12.6 H Absolute Lymphs (auto) 1.4 Absolute Monos (auto) 1.0 H Absolute Eos (auto) 0 Absolute Basos (auto) 0 Absolute Nucleated RBC 0 Nucleated RBC % 0 ABG pH 7.44 ABG pCO2 44 ABG pO2 179 H ABG HCO3 28.9 ABG O2 Saturation 99.6 H ABG Base Excess 5.1 H Sodium 143 Potassium 3.2 L D Chloride 110 Carbon Dioxide 26 Anion Gap 7 BUN 21 Creatinine 1.11 Est GFR ( Amer) 81.8 Est GFR (Non-Af Amer) 63.6 BUN/Creatinine Ratio 18.9 Glucose 115 H Calcium 7.7 L Magnesium 1.5 L Procalcitonin Random Vancomycin 10.8 03/30/17 06:15 WBC RBC Hgb Hct MCV MCH MCHC RDW Plt Count MPV Neut % (Auto) Lymph % (Auto) Mcculloch % (Auto) Eos % (Auto) Baso % (Auto) Absolute Neuts (auto) Absolute Lymphs (auto) Absolute Monos (auto) Absolute Eos (auto) Absolute Basos (auto) Absolute Nucleated RBC Nucleated RBC % ABG pH ABG pCO2 ABG pO2 ABG HCO3 ABG O2 Saturation ABG Base Excess Sodium Potassium Chloride Carbon Dioxide Anion Gap BUN Creatinine Est GFR ( Amer) Est GFR (Non-Af Amer) BUN/Creatinine Ratio Glucose Calcium Magnesium Procalcitonin 21.1 H Random Vancomycin Microbiology and Other Data: Microbiology 03/29/17 20:20 Blood Venous Aerobic Blood Culture - Preliminary No Growth Day 1 03/29/17 20:20 Blood Venous Anaerobic Blood Culture - Preliminary No Growth Day 1 03/29/17 20:17 Blood Venous Aerobic Blood Culture - Preliminary No Growth Day 1 03/29/17 20:17 Blood Venous Anaerobic Blood Culture - Preliminary No Growth Day 1 03/29/17 15:24 Urine Urine Culture - Preliminary Escherichia Coli 03/29/17 20:17 Nasal Nasal Screen MRSA (PCR)([facility]ANO) - Final Mrsa Negative Assess/Plan/Problems-Billing Assessment: 81 yo male PMH AL (inferior Qs), Afib on Eliquis, depression with suicide attempt 3 yrs ago p/w weakness, shortness of breath, WBC 13, positive UA. Started on ceftriaxone for UTI and lasix for CHF but CAT call HD! for acute hypoxia, rigors, eventual high fevers(internal). Aggressively Diuresed in ICU with respiratory improvement. Sepsis 2/2 Ecoli UTI currently on cefepime. #Sepsis 2/2 Ecoli UTI/pyelo Continue cefepimine f/u UCx sensitivies #CHF ECHO w/ EF 40-45%, RV overload, moderate pHTN moderate Continue bumex 2mg q6 daily weights strict io's #Afib - currently holding eliquis #hematuria - in setting of UTI - currently holding eliquis #Depression continue home cymbalta, remeron. dispo: wants to permantly go to NH/SNF, CODE: DNR/DNI trial of bipap kd Attending: Ángel Cohen
[2017-03-31] MEDS: Metoprolol Tartrate TAB* 25 MG PO SCH (01:48)
[2017-03-31] MEDS: Acetaminophen TAB* 325 MG PO PRN (04:08)
[2017-03-31] MEDS: Bumetanide IV* 0.25 MG/ML 4 ML VIAL SLOW PUSH SCH ×3 (05:03→16:20)
[2017-03-31 05:26] LABS: Hematocrit 38 % (42-52); Hemoglobin 12.4 g/dl (14.0-18.0); Mean Corpuscular HGB Conc 33 g/dl (31-36); Mean Corpuscular Hemoglobin 32 pg (27-31); Mean Corpuscular Volume 98 fL (80-94); Mean Platelet Volume 8 um3 (7.4-10.4); Red Blood Count 3.87 10^6/ul (4.0-5.4); Red Cell Distribution Width 16 % (10.5-15); White Blood Count 14.1 10^3/ul (3.5-10.8)
[2017-03-31 05:47] LABS: BUN/Creatinine Ratio 19.6 (8-20); Calcium 8.5 mg/dL (8.6-10.3); EGFR Non-African American 47.5 (>60); Magnesium 2.2 mg/dL (1.9-2.7); Potassium 3.5 mmol/L (3.5-5.0)
[2017-03-31] MEDS: Cefepime 1 GM in Dextrose(*) 1 GM/50 ML BAG IV SCH (08:01)
[2017-03-31] MEDS: Ziprasidone * 20 MG CAP (generic Geodon) PO SCH ×2 (08:38→22:17)
[2017-03-31] MEDS: Polyethylene Glycol 3350* 17 GM PACKET PO SCH (08:38)
[2017-03-31] MEDS: Allopurinol TAB* 300 MG PO SCH (08:38)
[2017-03-31] MEDS: DULoxetine DR CAP* 60 MG CAP.DR PO SCH (08:39)
[2017-03-31] MEDS: Aspirin Low Dose CHEW TAB* 81 MG PO SCH (08:39)
[2017-03-31] MEDS: Apixaban* 5 MG TAB PO SCH ×2 (08:39→22:18)
[2017-03-31] MEDS: Nystatin TOP POWDER* 15 GM BTL TOPICAL SCH (10:32)
[2017-03-31] MEDS: Potassium Chlor TAB* 20 MEQ TAB.ER PO SCH ×2 (11:18→14:33)
[2017-03-31] MEDS: HYDROcodone/ACETAMIN 5-325 MG* 1 TAB PO PRN (15:52)
[2017-03-31] MEDS: Atorvastatin* 80 MG TAB PO SCH (15:52)
[2017-03-31] MEDS ORDERED: cefTRIAXone VIAL(*) 1,000 MG in NS 0.9% 50 ML* 50 ML IVPB SCH (16:00)
--- NOTE | 2017-03-31 18:41 | PN ---
Subjective Date of Service: 03/31/17 Interval History: Around 3am there was concern that pt had left facial droop/tongue deviation; not present on hospitalist eval. Was very tired in AM, perked up much better by mid-day. Continues to diurese on aggressive regimen. Urine yellow now, hematuria largely resolved. Eliquis restarted. Transferred to the floor. MOLST filled out (DNR/DNI). Weaned to 1L while in room, with high 90sats. Ecoli pansensitive in urine. cefepime switched to ceftriaxone. Febrile but improving. Objective Active Medications: Acetaminophen (Tylenol Tab*) 650 mg PO Q6H PRN PRN Reason: FEVER Last Admin: 03/31/17 04:08 Dose: 650 mg Hydrocodone Bitart/Acetaminophen ([place] 5-325 Tab*) 1 tab PO Q6H PRN PRN Reason: PAIN Last Admin: 03/31/17 15:52 Dose: 1 tab Allopurinol (Zyloprim Tab*) 300 mg PO DAILY [facility] Last Admin: 03/31/17 08:38 Dose: 300 mg Apixaban (Eliquis*) 5 mg PO BID [facility] Last Admin: 03/31/17 08:39 Dose: 5 mg Aspirin (Aspirin Low Dose Tab*) 81 mg PO DAILY [facility] Last Admin: 03/31/17 08:39 Dose: 81 mg Atorvastatin Calcium (Lipitor*) 80 mg PO 1700 [facility] Last Admin: 03/31/17 15:52 Dose: 80 mg Bumetanide (Bumex*) 2 mg SLOW PUSH Q6H [facility] Last Admin: 03/31/17 16:20 Dose: 2 mg Duloxetine HCl (Cymbalta Cap*) 60 mg PO DAILY [facility] Last Admin: 03/31/17 08:39 Dose: 60 mg Famotidine (Pepcid Tab*) 40 mg PO BEDTIME [facility] Last Admin: 03/30/17 20:45 Dose: 40 mg Ceftriaxone Sodium 1,000 mg/ (Sodium Chloride) 50 mls @ 200 mls/hr IVPB Q24H [facility] Last Admin: 03/31/17 16:20 Dose: 200 mls/hr Mirtazapine (Remeron Tab*) 45 mg PO BEDTIME [facility] Last Admin: 03/30/17 20:45 Dose: 45 mg Nystatin (Nystatin Top Powder*) 1 applic TOPICAL BID [facility] Last Admin: 03/31/17 10:32 Dose: Not Given Polyethylene Glycol/Electrolytes (Miralax*) 17 gm PO DAILY [facility] Last Admin: 03/31/17 08:38 Dose: 17 gm Ziprasidone (Geodon (Generic) *) 40 mg PO BID [facility] Last Admin: 03/31/17 08:38 Dose: 40 mg Zolpidem Tartrate (Ambien Tab*) 10 mg PO BEDTIME [facility] Last Admin: 03/30/17 20:45 Dose: 10 mg Vital Signs 03/30/17 03/30/17 03/30/17 18:44 19:00 19:31 Temperature 102.0 F 102.0 F 102.2 F Pulse Rate 61 66 Respiratory 24 18 34 Rate Blood Pressure 150/65 111/82 (mmHg) O2 Sat by Pulse 95 82 Oximetry 03/30/17 03/30/17 03/30/17 20:00 20:02 21:00 Temperature 102.2 F 102.2 F 102.2 F Pulse Rate 67 68 64 Respiratory 32 32 35 Rate Blood Pressure 117/63 (mmHg) O2 Sat by Pulse 98 98 96 Oximetry 03/30/17 03/30/17 03/30/17 21:01 22:00 22:01 Temperature 102.2 F 102.2 F 102.2 F Pulse Rate 64 68 68 Respiratory 33 31 37 Rate Blood Pressure 137/62 142/62 (mmHg) O2 Sat by Pulse 96 96 96 Oximetry 03/30/17 03/30/17 03/30/17 22:30 23:00 23:01 Temperature 101.8 F 101.8 F Pulse Rate 69 69 Respiratory 22 24 24 Rate Blood Pressure 129/66 (mmHg) O2 Sat by Pulse 97 98 Oximetry 03/31/17 03/31/17 03/31/17 00:00 00:09 01:00 Temperature 101.3 F 101.3 F 101.1 F Pulse Rate 68 72 67 Respiratory 24 32 35 Rate Blood Pressure 138/70 (mmHg) O2 Sat by Pulse 96 97 99 Oximetry 03/31/17 03/31/17 03/31/17 01:01 02:00 02:01 Temperature 101.1 F 100.9 F 100.9 F Pulse Rate 66 67 72 Respiratory 32 33 35 Rate Blood Pressure 142/65 136/65 (mmHg) O2 Sat by Pulse 97 99 100 Oximetry 03/31/17 03/31/17 03/31/17 03:00 03:01 04:00 Temperature 100.9 F 100.9 F 100.8 F Pulse Rate 70 68 67 Respiratory 31 32 28 Rate Blood Pressure 127/74 (mmHg) O2 Sat by Pulse 99 99 99 Oximetry 03/31/17 03/31/17 03/31/17 04:01 05:00 05:01 Temperature 100.8 F 100.8 F 100.8 F Pulse Rate 67 67 63 Respiratory 31 23 30 Rate Blood Pressure 142/72 93/46 (mmHg) O2 Sat by Pulse 99 100 100 Oximetry 03/31/17 03/31/17 03/31/17 05:57 06:00 07:00 Temperature 100.4 F 100.2 F Pulse Rate 61 63 Respiratory 22 29 23 Rate Blood Pressure 119/55 101/50 (mmHg) O2 Sat by Pulse 100 99 Oximetry 03/31/17 03/31/17 03/31/17 08:00 09:00 09:34 Temperature 100.2 F 99.9 F 99.9 F Pulse Rate 63 69 69 Respiratory 30 26 29 Rate Blood Pressure 105/59 111/65 (mmHg) O2 Sat by Pulse 100 100 100 Oximetry 03/31/17 03/31/17 03/31/17 10:00 11:00 12:00 Temperature 99.9 F 100.0 F 99.9 F Pulse Rate 65 57 70 Respiratory 27 17 21 Rate Blood Pressure 104/54 109/61 (mmHg) O2 Sat by Pulse 100 100 100 Oximetry 03/31/17 03/31/17 03/31/17 12:01 13:00 13:01 Temperature 99.9 F 99.9 F 99.9 F Pulse Rate 67 Respiratory 17 28 27 Rate Blood Pressure 137/59 125/74 (mmHg) O2 Sat by Pulse 100 Oximetry 03/31/17 03/31/17 03/31/17 14:00 14:01 15:00 Temperature 100.2 F 100.2 F 100.6 F Pulse Rate Respiratory 30 28 32 Rate Blood Pressure 122/64 (mmHg) O2 Sat by Pulse Oximetry 03/31/17 03/31/17 03/31/17 15:01 15:41 15:52 Temperature 100.6 F 97.7 F Pulse Rate 69 Respiratory 35 22 18 Rate Blood Pressure 121/67 111/51 (mmHg) O2 Sat by Pulse 96 Oximetry 03/31/17 17:48 Temperature Pulse Rate Respiratory 18 Rate Blood Pressure (mmHg) O2 Sat by Pulse Oximetry Oxygen Devices in Use Now: None Appearance: NAD, deconditioned (especially lower extremities) Ears/Nose/Mouth/Throat: NL Teeth, Lips, Gums, Mucous Membranes Moist Neck: NL Appearance and Movements; NL JVP Respiratory: - - rales bilaterally. no wheezing or rhonchi Cardiovascular: NL Sounds; No Murmurs; No JVD, RRR Abdominal: - - soft, distended/obese. nontender Extremities: - - 1+ edema ankles Skin: No Rash or Ulcers Neurological: Alert and Oriented x 3, - - CN II-XII intact. 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 , sensation intact, wiggling toes b/l Nutrition: Taking PO's Result Diagrams: 03/31/17 05:15 03/31/17 05:15 Additional Lab and Data: Laboratory Results - last 24 hr 03/31/17 03/31/17 03/31/17 04:29 05:15 05:15 WBC 14.1 H RBC 3.87 L Hgb 12.4 L Hct 38 L MCV 98 H MCH 32 H MCHC 33 RDW 16 H Plt Count 167 MPV 8 Neut % (Auto) 76.5 Lymph % (Auto) 14.0 L [place] % (Auto) 8.5 Eos % (Auto) 0.5 Baso % (Auto) 0.5 Absolute Neuts (auto) 10.8 H Absolute Lymphs (auto) 2.0 Absolute Monos (auto) 1.2 H Absolute Eos (auto) 0.1 Absolute Basos (auto) 0.1 Absolute Nucleated RBC 0 Nucleated RBC % 0 Sodium 138 Potassium 3.5 Chloride 99 L Carbon Dioxide 31 Anion Gap 8 BUN 28 H Creatinine 1.43 H Est GFR ( Amer) 61.0 Est GFR (Non-Af Amer) 47.5 BUN/Creatinine Ratio 19.6 Glucose 152 H POC Glucose (mg/dL) 169 H Calcium 8.5 L Magnesium 2.2 Microbiology and Other Data: Microbiology 03/29/17 15:24 Urine Urine Culture - Final Escherichia Coli 03/29/17 20:20 Blood Venous Aerobic Blood Culture - Preliminary No Growth Day 1 03/29/17 20:20 Blood Venous Anaerobic Blood Culture - Preliminary No Growth Day 1 03/29/17 20:17 Blood Venous Aerobic Blood Culture - Preliminary No Growth Day 1 03/29/17 20:17 Blood Venous Anaerobic Blood Culture - Preliminary No Growth Day 1 03/29/17 20:17 Nasal Nasal Screen MRSA (PCR)(DANO) - Final Mrsa Negative Assess/Plan/Problems-Billing Assessment: 81 yo male 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 Started on ceftriaxone for UTI and lasix for CHF but CAT call later HD#1 for acute hypoxia, rigors, eventual high fevers(on greenwood probe only). Aggressively Diuresed with much respiratory improve. Sepsis 2/2 Ecoli UTI currently on cefepime. #Sepsis 2/2 pansensitive Ecoli UTI/pyelo Switch cefepimine to ceftriaxone Blood Cultures NGTD #CHF ECHO w/ EF 40-45%, RV overload, moderate pHTN moderate Switch bumex to q12 from q6 given improvement in oxygen requirements. daily weights strict io's would consult cardiology in AM #Afib, high [id number] - restarted eliquis given resolution of hematuria #hematuria(resolved) - in setting of UTI/pyelo #Depression - continue home cymbalta, remeron. - little motivation to leave his house. - Consider palliative care consult dispo: wants to go to NH/SNF care home, transferred to floor. CODE: DNR/DNI trial of bipap okay. PRIETO updated 03/31 Attending: Ángel Cohen
[2017-03-31] MEDS: Mirtazapine TAB* 15 MG PO SCH (22:16)
[2017-03-31] MEDS: Zolpidem TAB* 10 MG PO SCH (22:16)
[2017-03-31] MEDS: Famotidine TAB* 20 MG PO SCH (22:17)
[2017-04-01] MEDS: Nystatin TOP POWDER* 15 GM BTL TOPICAL SCH ×3 (00:58→21:41)
[2017-04-01] MEDS: Bumetanide IV* 0.25 MG/ML 4 ML VIAL SLOW PUSH SCH ×3 (03:33→21:33)
[2017-04-01 07:15] LABS: Hematocrit 41 % (42-52); Hemoglobin 13.2 g/dl (14.0-18.0); Mean Corpuscular HGB Conc 33 g/dl (31-36); Mean Corpuscular Hemoglobin 32 pg (27-31); Mean Corpuscular Volume 98 fL (80-94); Mean Platelet Volume 8 um3 (7.4-10.4); Red Blood Count 4.15 10^6/ul (4.0-5.4); Red Cell Distribution Width 17 % (10.5-15); White Blood Count 11.2 10^3/ul (3.5-10.8)
[2017-04-01] MEDS ORDERED: Vancomycin Trough Check NOTE FOLLOW UP ONE (08:30)
[2017-04-01] MEDS: Apixaban* 5 MG TAB PO SCH ×2 (09:44→21:38)
[2017-04-01] MEDS: Allopurinol TAB* 300 MG PO SCH (09:44)
[2017-04-01] MEDS: Aspirin Low Dose CHEW TAB* 81 MG PO SCH (09:44)
[2017-04-01] MEDS: Ziprasidone * 20 MG CAP (generic Geodon) PO SCH ×2 (09:45→21:37)
[2017-04-01] MEDS: DULoxetine DR CAP* 60 MG CAP.DR PO SCH (09:45)
[2017-04-01] MEDS: Polyethylene Glycol 3350* 17 GM PACKET PO SCH (09:45)
[2017-04-01 11:08] LABS: Potassium 3.8 mmol/L (3.5-5.0)
[2017-04-01] MEDS: cefTRIAXone VIAL(*) 1,000 MG in D5W 50 ML BAG* 50 ML IVPB SCH (16:27)
[2017-04-01] MEDS: Atorvastatin* 80 MG TAB PO SCH (16:27)
--- NOTE | 2017-04-01 20:32 | PN ---
Subjective Date of Service: 04/01/17 Interval History: Patient feels better. Less SOB. Wants to be able to take his lunesta at night. Objective Active Medications: Acetaminophen (Tylenol Tab*) 650 mg PO Q6H PRN PRN Reason: FEVER Last Admin: 03/31/17 04:08 Dose: 650 mg Hydrocodone Bitart/Acetaminophen ([place] 5-325 Tab*) 1 tab PO Q6H PRN PRN Reason: PAIN Last Admin: 03/31/17 15:52 Dose: 1 tab Allopurinol (Zyloprim Tab*) 300 mg PO DAILY [facility] Last Admin: 04/01/17 09:44 Dose: 300 mg Apixaban (Eliquis*) 5 mg PO BID [facility] Last Admin: 04/01/17 09:44 Dose: 5 mg Aspirin (Aspirin Low Dose Tab*) 81 mg PO DAILY [facility] Last Admin: 04/01/17 09:44 Dose: 81 mg Atorvastatin Calcium (Lipitor*) 80 mg PO 1700 [facility] Last Admin: 04/01/17 16:27 Dose: 80 mg Bumetanide (Bumex*) 2 mg SLOW PUSH BID [facility] Last Admin: 04/01/17 09:44 Dose: 2 mg Duloxetine HCl (Cymbalta Cap*) 60 mg PO DAILY [facility] Last Admin: 04/01/17 09:45 Dose: 60 mg Famotidine (Pepcid Tab*) 40 mg PO BEDTIME [facility] Last Admin: 03/31/17 22:17 Dose: 40 mg Ceftriaxone Sodium 1,000 mg/ (Dextrose) 50 mls @ 200 mls/hr IVPB Q24H [facility] Last Admin: 04/01/17 16:27 Dose: 200 mls/hr Mirtazapine (Remeron Tab*) 45 mg PO BEDTIME [facility] Last Admin: 03/31/17 22:16 Dose: 45 mg Nystatin (Nystatin Top Powder*) 1 applic TOPICAL BID [facility] Last Admin: 04/01/17 09:45 Dose: 1 applic Polyethylene Glycol/Electrolytes (Miralax*) 17 gm PO DAILY [facility] Last Admin: 04/01/17 09:45 Dose: Not Given Ziprasidone (Geodon (Generic) *) 40 mg PO BID [facility] Last Admin: 04/01/17 09:45 Dose: 40 mg Zolpidem Tartrate (Ambien Tab*) 10 mg PO BEDTIME [facility] Last Admin: 03/31/17 22:16 Dose: 10 mg Vital Signs - 8 hr 04/01/17 16:31 Temperature 98.6 F Pulse Rate 72 Respiratory 30 Rate Blood Pressure 131/51 (mmHg) O2 Sat by Pulse 95 Oximetry Oxygen Devices in Use Now: None Appearance: Obese gentleman lying in bed in NAD Eyes: PERRLA Ears/Nose/Mouth/Throat: NL Teeth, Lips, Gums Neck: No Thyroid Enlargement, Masses Respiratory: Clear to Auscultation Cardiovascular: - - S1S2 christy Abdominal: NL Sounds; No Tenderness; No Distention, No Hepatosplenomegaly Lymphatic: No Cervical Adenopathy Extremities: No Clubbing, Cyanosis Skin: No Rash or Ulcers Neurological: Alert and Oriented x 3 Result Diagrams: 04/01/17 07:03 04/01/17 07:40 Additional Lab and Data: Laboratory Results - last 24 hr 03/31/17 03/31/17 03/31/17 04:29 05:15 05:15 WBC 14.1 H RBC 3.87 L Hgb 12.4 L Hct 38 L MCV 98 H MCH 32 H MCHC 33 RDW 16 H Plt Count 167 MPV 8 Neut % (Auto) 76.5 Lymph % (Auto) 14.0 L [place] % (Auto) 8.5 Eos % (Auto) 0.5 Baso % (Auto) 0.5 Absolute Neuts (auto) 10.8 H Absolute Lymphs (auto) 2.0 Absolute Monos (auto) 1.2 H Absolute Eos (auto) 0.1 Absolute Basos (auto) 0.1 Absolute Nucleated RBC 0 Nucleated RBC % 0 Sodium 138 Potassium 3.5 Chloride 99 L Carbon Dioxide 31 Anion Gap 8 BUN 28 H Creatinine 1.43 H Est GFR ( Amer) 61.0 Est GFR (Non-Af Amer) 47.5 BUN/Creatinine Ratio 19.6 Glucose 152 H POC Glucose (mg/dL) 169 H Calcium 8.5 L Magnesium 2.2 Microbiology and Other Data: Microbiology 03/29/17 15:24 Urine Urine Culture - Final Escherichia Coli 03/29/17 20:20 Blood Venous Aerobic Blood Culture - Preliminary No Growth Day 1 03/29/17 20:20 Blood Venous Anaerobic Blood Culture - Preliminary No Growth Day 1 03/29/17 20:17 Blood Venous Aerobic Blood Culture - Preliminary No Growth Day 1 03/29/17 20:17 Blood Venous Anaerobic Blood Culture - Preliminary No Growth Day 1 03/29/17 20:17 Nasal Nasal Screen MRSA (PCR)(DANO) - Final Mrsa Negative Assess/Plan/Problems-Billing Assessment: 81 yo male PMH evidence of inferior [place] (unknown to patient), Afib on Eliquis, depression with suicide attempt 3 yrs ago p/w weakness, shortness of breath, WBC 13, positive UA. Started on ceftriaxone for UTI and lasix for CHF but CAT call later HD#1 for acute hypoxia, rigors, eventual high fevers(on greenwood probe only). Aggressively Diuresed with much respiratory improve. Sepsis 2/2 Ecoli UTI currently on cefepime. - Patient Problems (1) Sepsis Current Visit: Yes Status: Acute Comment: Sepsis secondary to UTI - pansensitive Ecoli Continue Rocephin day #4 (2) Hematuria Current Visit: Yes Status: Acute Code(s): R31.9 - HEMATURIA, UNSPECIFIED SNOMED Code(s): 77684664 Comment: Resolved (3) Afib Current Visit: Yes Status: Acute Code(s): I48.91 - UNSPECIFIED ATRIAL FIBRILLATION SNOMED Code(s): 08300938 Comment: Continue Eliquis, HR adequately controlled (4) CHF (congestive heart failure) Current Visit: Yes Status: Acute Code(s): I50.9 - HEART FAILURE, UNSPECIFIED SNOMED Code(s): 33628997 Comment: Systolic CHF Continue bumex Daily weights strict io's Requiring no supplemental oxygen and asymtomatic. Cardiology consult as outpatient (5) Depression Current Visit: Yes Status: Acute Code(s): F32.9 - MAJOR DEPRESSIVE DISORDER , SINGLE EPISODE, UNSPECIFIED SNOMED Code(s): 16760018 Comment: Continue cymbalta, remeron. Appears mildly improved (6) DNR (do not resuscitate) Current Visit: Yes Status: Acute Status and Disposition: For STR
[2017-04-01] MEDS ORDERED: CMCS Melatonin (NF) 3 MG TAB PO PRN (20:59)
[2017-04-01] MEDS: Famotidine TAB* 20 MG PO SCH (21:36)
[2017-04-01] MEDS: HYDROcodone/ACETAMIN 5-325 MG* 1 TAB PO PRN (21:36)
[2017-04-01] MEDS: Mirtazapine TAB* 15 MG PO SCH (21:37)
[2017-04-01] MEDS: Zolpidem TAB* 10 MG PO SCH (21:38)
[2017-04-02 05:55] LABS: Hematocrit 42 % (42-52); Hemoglobin 13.8 g/dl (14.0-18.0); Mean Corpuscular HGB Conc 33 g/dl (31-36); Mean Corpuscular Hemoglobin 33 pg (27-31); Mean Corpuscular Volume 98 fL (80-94); Mean Platelet Volume 8 um3 (7.4-10.4); Red Blood Count 4.24 10^6/ul (4.0-5.4); Red Cell Distribution Width 16 % (10.5-15); White Blood Count 10.1 10^3/ul (3.5-10.8)
[2017-04-02] MEDS: Aspirin Low Dose CHEW TAB* 81 MG PO SCH (09:51)
[2017-04-02] MEDS: Ziprasidone * 20 MG CAP (generic Geodon) PO SCH ×2 (09:51→22:18)
[2017-04-02] MEDS: DULoxetine DR CAP* 60 MG CAP.DR PO SCH (09:51)
[2017-04-02] MEDS: Allopurinol TAB* 300 MG PO SCH (09:53)
[2017-04-02] MEDS: Apixaban* 5 MG TAB PO SCH ×2 (09:53→22:16)
[2017-04-02] MEDS: Polyethylene Glycol 3350* 17 GM PACKET PO SCH (09:54)
[2017-04-02] MEDS: Nystatin TOP POWDER* 15 GM BTL TOPICAL SCH ×2 (09:54→22:19)
[2017-04-02] MEDS: Bumetanide IV* 0.25 MG/ML 4 ML VIAL SLOW PUSH SCH ×2 (09:54→22:16)
--- NOTE | 2017-04-02 16:23 | PN ---
Subjective Date of Service: 04/02/17 Interval History: Patient seen and examined. Appears shaky, but states he's feeling "ok". No oxygen use at present. Denies pain, no acute SOB, afebrile, denies chills, no n/ v. States he had trouble sleeping. Roommate brought his lunesta from home but pharmacy cannot hold it (contolled substance). No further complaints. Objective Active Medications: Acetaminophen (Tylenol Tab*) 650 mg PO Q6H PRN PRN Reason: FEVER Last Admin: 03/31/17 04:08 Dose: 650 mg Hydrocodone Bitart/Acetaminophen ([place] 5-325 Tab*) 1 tab PO Q6H PRN PRN Reason: PAIN Last Admin: 04/01/17 21:36 Dose: 1 tab Allopurinol (Zyloprim Tab*) 300 mg PO DAILY [facility] Last Admin: 04/02/17 09:53 Dose: 300 mg Apixaban (Eliquis*) 5 mg PO BID [facility] Last Admin: 04/02/17 09:53 Dose: 5 mg Aspirin (Aspirin Low Dose Tab*) 81 mg PO DAILY [facility] Last Admin: 04/02/17 09:51 Dose: 81 mg Atorvastatin Calcium (Lipitor*) 80 mg PO 1700 [facility] Last Admin: 04/01/17 16:27 Dose: 80 mg Bumetanide (Bumex*) 2 mg SLOW PUSH BID [facility] Last Admin: 04/02/17 09:54 Dose: 2 mg Duloxetine HCl (Cymbalta Cap*) 60 mg PO DAILY [facility] Last Admin: 04/02/17 09:51 Dose: 60 mg Famotidine (Pepcid Tab*) 40 mg PO BEDTIME [facility] Last Admin: 04/01/17 21:36 Dose: 40 mg Ceftriaxone Sodium 1,000 mg/ (Dextrose) 50 mls @ 200 mls/hr IVPB Q24H [facility] Last Admin: 04/01/17 16:27 Dose: 200 mls/hr Melatonin (Melatonin (Nf)) 3 mg PO BEDTIME PRN; Protocol PRN Reason: SLEEP Last Admin: 04/02/17 02:14 Dose: 3 mg Mirtazapine (Remeron Tab*) 45 mg PO BEDTIME [facility] Last Admin: 04/01/17 21:37 Dose: 45 mg Nystatin (Nystatin Top Powder*) 1 applic TOPICAL BID [facility] Last Admin: 04/02/17 09:54 Dose: 1 applic Polyethylene Glycol/Electrolytes (Miralax*) 17 gm PO DAILY [facility] Last Admin: 04/02/17 09:54 Dose: Not Given Ziprasidone (Geodon (Generic) *) 40 mg PO BID [facility] Last Admin: 04/02/17 09:51 Dose: 40 mg Zolpidem Tartrate (Ambien Tab*) 10 mg PO BEDTIME [facility] Last Admin: 04/01/17 21:38 Dose: 10 mg Vital Signs - 8 hr 04/02/17 11:05 Temperature 97.6 F Pulse Rate 85 Respiratory 20 Rate Blood Pressure 141/67 (mmHg) O2 Sat by Pulse 97 Oximetry Oxygen Devices in Use Now: None Appearance: Pale, shaky, NAD Ears/Nose/Mouth/Throat: - - dry oral mucosa Neck: Trachea Midline Respiratory: Symmetrical Chest Expansion and Respiratory Effort - clear apices, diminished at the bases, no appreciable wheeze Cardiovascular: NL Sounds; No Murmurs; No JVD Abdominal: NL Sounds; No Tenderness; No Distention, - - obese Extremities: No Edema Neurological: Alert and Oriented x 3 Nutrition: Taking PO's Result Diagrams: 04/02/17 05:38 04/01/17 07:40 Additional Lab and Data: Laboratory Results - last 24 hr 03/31/17 03/31/17 03/31/17 04:29 05:15 05:15 WBC 14.1 H RBC 3.87 L Hgb 12.4 L Hct 38 L MCV 98 H MCH 32 H MCHC 33 RDW 16 H Plt Count 167 MPV 8 Neut % (Auto) 76.5 Lymph % (Auto) 14.0 L [place] % (Auto) 8.5 Eos % (Auto) 0.5 Baso % (Auto) 0.5 Absolute Neuts (auto) 10.8 H Absolute Lymphs (auto) 2.0 Absolute Monos (auto) 1.2 H Absolute Eos (auto) 0.1 Absolute Basos (auto) 0.1 Absolute Nucleated RBC 0 Nucleated RBC % 0 Sodium 138 Potassium 3.5 Chloride 99 L Carbon Dioxide 31 Anion Gap 8 BUN 28 H Creatinine 1.43 H Est GFR ( Amer) 61.0 Est GFR (Non-Af Amer) 47.5 BUN/Creatinine Ratio 19.6 Glucose 152 H POC Glucose (mg/dL) 169 H Calcium 8.5 L Magnesium 2.2 Microbiology and Other Data: Microbiology 03/29/17 15:24 Urine Urine Culture - Final Escherichia Coli 03/29/17 20:20 Blood Venous Aerobic Blood Culture - Preliminary No Growth Day 1 03/29/17 20:20 Blood Venous Anaerobic Blood Culture - Preliminary No Growth Day 1 03/29/17 20:17 Blood Venous Aerobic Blood Culture - Preliminary No Growth Day 1 03/29/17 20:17 Blood Venous Anaerobic Blood Culture - Preliminary No Growth Day 1 03/29/17 20:17 Nasal Nasal Screen MRSA (PCR)(DANO) - Final Mrsa Negative Assess/Plan/Problems-Billing Assessment: This is an 81 year old male presenting with acute respiratory failure 2/2 urinary sepsis and acute exacerbation of chronic diastolic heart failure requiring aggressive IV diuresis and IV cefepime. - Patient Problems (1) Insomnia Code(s): G47.00 - INSOMNIA, UNSPECIFIED SNOMED Code(s): 473265670 Comment: - No ambien as patient attempted OD on this med in the past - No lunesta from home, as this is controlled and hospital pharmacy will not allow - Will try melatonin (2) Acute on chronic diastolic (congestive) heart failure Code(s): I50.33 - ACUTE ON CHRONIC DIASTOLIC (CONGESTIVE) HEART FAILURE SNOMED Code(s): 648344478 Comment: - ECHO shows EF 40-45% - S/p Agressive diuresis, will continue Bumex BID - Off O2, stable on room air - Maintain euvolemia - Daily weights (3) Acute respiratory failure with hypoxia Code(s): J96.01 - ACUTE RESPIRATORY FAILURE WITH HYPOXIA SNOMED Code(s): 12319394 Comment: - 2/2 acute exac of HF/fluid overload - Resolved with diuresis and supplemental O2 - Currently on room air - Stable, continue to monitor (4) Afib Code(s): I48.91 - UNSPECIFIED ATRIAL FIBRILLATION SNOMED Code(s): 14757495 Comment: - Continue Eliquis - Rate controlled - Maintain tele (5) Depression Code(s): F32.9 - MAJOR DEPRESSIVE DISORDER, SINGLE EPISODE, UNSPECIFIED SNOMED Code(s): 06111288 Comment: - Continue cymbalta and remeron - Mood stable (6) Sepsis Comment: - 2/2 Ecoli UTI - Rocephin Day 5 - Follow cultures - Supportive care - Monitor temps, HR and BP (7) UTI (urinary tract infection) due to Enterococcus Code(s): N39.0 - URINARY TRACT INFECTION, SITE NOT SPECIFIED; B95.2 - ENTEROCOCCUS THE CAUSE OF DISEASES CLASSIFIED ELSEWHERE SNOMED Code(s): 782752750658279 Comment: - Also with hematuria, now resolved (eliquis restarted) - Continue Rocephin day 5 - Monitor urine, follow cultures Status and Disposition: Remain inpatient for now Bed arranged at [facility] when clear for DC Likely DC Friday Counseling and/or Coordination of Care Minutes: Coordinated with patient and RN , time spent >60 mins Attending: Isabel Gallo
[2017-04-02] MEDS: Atorvastatin* 80 MG TAB PO SCH (16:49)
[2017-04-02] MEDS: cefTRIAXone VIAL(*) 1,000 MG in D5W 50 ML BAG* 50 ML IVPB SCH (16:54)
[2017-04-02] MEDS ORDERED: Melatonin (NF) ** ENTER STRENGTH IN LABEL DIRECTIONS PO SCH (21:00)
[2017-04-02] MEDS ORDERED: CMCS Melatonin (NF) 3 MG TAB PO SCH (21:00)
[2017-04-02] MEDS: Famotidine TAB* 20 MG PO SCH (22:16)
[2017-04-02] MEDS: Mirtazapine TAB* 15 MG PO SCH (22:17)
[2017-04-02] MEDS: HYDROcodone/ACETAMIN 5-325 MG* 1 TAB PO PRN (22:30)
[2017-04-02] MEDS: Furosemide IV* 10 MG/ML 10 ML VIAL (100 MG) IV SCH (22:46)
[2017-04-02] MEDS ORDERED: Baclofen TAB* 10 MG PO ONE (23:01)
[2017-04-03 06:24] LABS: Hematocrit 42 % (42-52); Mean Corpuscular HGB Conc 33 g/dl (31-36); Mean Corpuscular Hemoglobin 32 pg (27-31); Mean Corpuscular Volume 97 fL (80-94); Mean Platelet Volume 8 um3 (7.4-10.4); Red Blood Count 4.35 10^6/ul (4.0-5.4); Red Cell Distribution Width 16 % (10.5-15); White Blood Count 11.1 10^3/ul (3.5-10.8)
[2017-04-03] MEDS: DULoxetine DR CAP* 60 MG CAP.DR PO SCH (08:23)
[2017-04-03] MEDS: Aspirin Low Dose CHEW TAB* 81 MG PO SCH (08:23)
[2017-04-03] MEDS: Furosemide IV* 10 MG/ML 10 ML VIAL (100 MG) IV SCH (08:23)
[2017-04-03] MEDS: Polyethylene Glycol 3350* 17 GM PACKET PO SCH (08:23)
[2017-04-03] MEDS: Apixaban* 5 MG TAB PO SCH ×2 (08:23→20:13)
[2017-04-03] MEDS: Ziprasidone * 20 MG CAP (generic Geodon) PO SCH ×2 (08:24→20:15)
[2017-04-03] MEDS: Allopurinol TAB* 300 MG PO SCH (08:24)
[2017-04-03] MEDS ORDERED: Baclofen TAB* 10 MG PO PRN (14:10)
--- NOTE | 2017-04-03 14:41 | PN ---
Subjective Date of Service: 04/03/17 Interval History: Mr. Kirk states that he is feeling relatively well today. He continues with his greenwood catheter. I spoke with him at length regarding the risk for infection with use of urinary catheters. He understands that he could get a UTI that could led to severe illness and even . At this time, he is opting for limited medical intereventions only and requests that the greenwood remain in place for comfort. In terms of other interventions, he would accept short trials of antibiotics for illness and other non-aggressive interventions, but is generally more interested in pursuing only those interventions that would assure that he is comfortable. Objective Active Medications: Acetaminophen (Tylenol Tab*) 650 mg PO Q6H PRN Hydrocodone Bitart/Acetaminophen ([place] 5-325 Tab*) 1 tab PO Q6H PRN Allopurinol (Zyloprim Tab*) 300 mg PO DAILY [facility] Apixaban (Eliquis*) 5 mg PO BID [facility] Aspirin (Aspirin Low Dose Tab*) 81 mg PO DAILY [facility] Atorvastatin Calcium (Lipitor*) 80 mg PO 1700 [facility] Baclofen (Lioresal Tab*) 5 mg PO Q12H PRN Duloxetine HCl (Cymbalta Cap*) 60 mg PO DAILY [facility] Famotidine (Pepcid Tab*) 40 mg PO BEDTIME [facility] Furosemide (Lasix Iv*) 80 mg IV BID [facility] Ceftriaxone Sodium 1 gm/ (Sodium Chloride) 50 mls @ 200 mls/hr IVPB Q24H [facility] Melatonin (Melatonin (Nf)) 3 mg PO BEDTIME [facility] Mirtazapine (Remeron Tab*) 45 mg PO BEDTIME [facility] Nystatin (Nystatin Top Powder*) 1 applic TOPICAL BID [facility] Polyethylene Glycol/Electrolytes (Miralax*) 17 gm PO DAILY [facility] Ziprasidone (Geodon (Generic) *) 40 mg PO BID [facility] Vital Signs: Temp Pulse Resp BP Pulse Ox 98.0 F 76 20 156/79 99 04/03/17 11:05 04/03/17 11:05 04/03/17 11:05 04/03/17 11:05 04/03/17 11:05 Oxygen Devices in Use Now: None Appearance: Male lying in bed in NAD Eyes: No Scleral Icterus Ears/Nose/Mouth/Throat: Mucous Membranes Moist Neck: NL Appearance and Movements; NL JVP Respiratory: Symmetrical Chest Expansion and Respiratory Effort, Clear to Auscultation Cardiovascular: NL Sounds; No Murmurs; No JVD, No Edema Abdominal: NL Sounds; No Tenderness; No Distention Lymphatic: No Cervical Adenopathy Extremities: No Edema Skin: No Rash or Ulcers Neurological: Alert and Oriented x 3, NL Muscle Strength and Tone Nutrition: Taking PO's Result Diagrams: 04/03/17 05:58 04/01/17 07:40 Additional Lab and Data: . Microbiology and Other Data: . Assess/Plan/Problems-Billing Assessment: Mr. Kirk is an 81 year old male presenting with acute respiratory failure 2/2 urinary sepsis and acute exacerbation of chronic diastolic heart failure requiring aggressive IV diuresis and IV cefepime. - Patient Problems (1) Sepsis Comment: - Resolved, 2/2 Ecoli UTI - Continue ceftriaxone day 6, switch to bactrim tomorrow. (2) UTI (urinary tract infection) due to Enterococcus Comment: - Also with hematuria, now resolved (eliquis restarted) - Continue Rocephin day 6, complete 10 course of antibiotics with bactrim. (3) Acute on chronic diastolic (congestive) heart failure Comment: - Resolved. - ECHO shows EF 40-45%, patient had been on torsemide outpatient for a time but was taken off of it. - Hold further diuresis until assessment of electrolytes and kidney function in AM. Likely plan to start furosemide BID at discharge. - Daily weights (4) Acute kidney injury Comment: - BUN/Cr mildly elevated after aggressive diuresis for CHF. - Recheck in AM. (5) Elevated troponin Comment: - Trops elevated in setting of sepsis and acute CHF. - Suspect demand ischemia. - Patient opting for limited medical interventions and would not want stress test or cardiac cath. (6) Acute respiratory failure with hypoxia Current Visit: Yes Comment: - Resolved. - 2/2 acute exac of HF/fluid overload (7) Afib Comment: - Continue Eliquis - Rate controlled (8) Depression Comment: - Continue cymbalta and remeron (9) Insomnia Comment: - No ambien as patient attempted OD on this med in the past - No lunesta from home, as this is controlled and hospital pharmacy will not allow - Will increase melatonin (10) DNR (do not resuscitate) (11) DVT prophylaxis Comment: - Eliquis. Status and Disposition: Inpatient. Plan for discharge to [place] tomorrow.
[2017-04-03] MEDS: Nystatin TOP POWDER* 15 GM BTL TOPICAL SCH ×2 (14:47→20:15)
[2017-04-03] MEDS ORDERED: cefTRIAXone(*) 1 GM in NS 0.9% 50 ML* 50 ML IVPB SCH (16:00)
[2017-04-03] MEDS: Atorvastatin* 80 MG TAB PO SCH (16:09)
[2017-04-03] MEDS: Famotidine TAB* 20 MG PO SCH (20:13)
[2017-04-03] MEDS: Mirtazapine TAB* 15 MG PO SCH (20:14)
[2017-04-03] MEDS ORDERED: CMCS Melatonin (NF) 3 MG TAB PO SCH (21:00)
--- NOTE | 2017-04-04 07:34 | PN ---
Subjective Date of Service: 04/04/17 Interval History: Mr. Kirk states that he is feeling well this morning. He continues to have issues with difficulty sleeping but he did get a couple of hours of sleep last night. He denies complaint including chest pain, SOB, nausea, or abdominal pain. Objective Active Medications: Acetaminophen (Tylenol Tab*) 650 mg PO Q6H PRN Hydrocodone Bitart/Acetaminophen ([place] 5-325 Tab*) 1 tab PO Q6H PRN Allopurinol (Zyloprim Tab*) 300 mg PO DAILY IRASEMA Apixaban (Eliquis*) 5 mg PO BID IRASEMA Aspirin (Aspirin Low Dose Tab*) 81 mg PO DAILY IRASEMA Atorvastatin Calcium (Lipitor*) 80 mg PO 1700 IRASEMA Baclofen (Lioresal Tab*) 5 mg PO Q12H PRN Duloxetine HCl (Cymbalta Cap*) 60 mg PO DAILY IRASEMA Famotidine (Pepcid Tab*) 40 mg PO BEDTIME IRASEMA Ceftriaxone Sodium 1 gm/ (Sodium Chloride) 50 mls @ 200 mls/hr IVPB Q24H IRASEMA Melatonin (Melatonin (Nf)) 6 mg PO BEDTIME IRASEMA Mirtazapine (Remeron Tab*) 45 mg PO BEDTIME IRASEMA Nystatin (Nystatin Top Powder*) 1 applic TOPICAL BID IRASEMA Polyethylene Glycol/Electrolytes (Miralax*) 17 gm PO DAILY IRASEMA Ziprasidone (Geodon (Generic) *) 40 mg PO BID IRASEMA Vital Signs: Temp Pulse Resp BP Pulse Ox 98.2 F 76 20 157/77 97 04/04/17 03:31 04/04/17 03:31 04/04/17 03:31 04/04/17 03:31 04/04/17 03:31 Oxygen Devices in Use Now: None Appearance: Elderly male lying in bed in NAD Eyes: No Scleral Icterus Ears/Nose/Mouth/Throat: Mucous Membranes Moist Neck: Trachea Midline Respiratory: Symmetrical Chest Expansion and Respiratory Effort, Clear to Auscultation Cardiovascular: NL Sounds; No Murmurs; No JVD, No Edema Abdominal: NL Sounds; No Tenderness; No Distention Extremities: No Edema Skin: No Rash or Ulcers Neurological: Alert and Oriented x 3, NL Muscle Strength and Tone Nutrition: Taking PO's Result Diagrams: 04/03/17 05:58 04/04/17 07:03 Additional Lab and Data: . Microbiology and Other Data: . Assess/Plan/Problems-Billing Assessment: Mr. Kirk is an 81 year old male presenting with acute respiratory failure 2/2 urinary sepsis and acute exacerbation of chronic diastolic heart failure requiring aggressive IV diuresis and IV cefepime. - Patient Problems (1) Sepsis Comment: - Resolved, 2/2 Ecoli UTI - Continue bactrim to complete a 10 day course of antibiotics. (2) UTI (urinary tract infection) due to Enterococcus Comment: - Also with hematuria, now resolved (eliquis restarted) - Continue bactrim to complete a 10 day course of antibiotics. (3) Acute on chronic diastolic (congestive) heart failure Comment: - Resolved. - ECHO shows EF 40-45%, patient had been on torsemide outpatient for a time but was taken off of it. - Plan to resume low dose torsemide now, follow up BMP monitoring outpatient. - Daily weights (4) Acute kidney injury Comment: - BUN/Cr mildly elevated after aggressive diuresis for CHF. - Stable BUN/Cr, plan to resume torsemide. Recommend close monitoring of BMP outpatient. (5) Hypertension Comment: - SBP 170s this AM. - Start torsemide for related CHF history. Resume home propanolol, hold ramipril in setting of KAVITA. (6) Elevated troponin Comment: - Trops elevated in setting of sepsis and acute CHF. - Suspect demand ischemia. - Patient opting for limited medical interventions and would not want stress test or cardiac cath. (7) Acute respiratory failure with hypoxia Current Visit: Yes Comment: - Resolved. - 2/2 acute exac of HF/fluid overload (8) Afib Comment: - Continue Eliquis - Rate controlled (9) Depression Comment: - Continue cymbalta and remeron (10) Insomnia Comment: - No ambien as patient attempted OD on this med in the past - Patient to resume lunesta at SNF. Continue remeron and geodon. (11) DNR (do not resuscitate) (12) DVT prophylaxis Comment: - Eliquis. Status and Disposition: Inpatient. Discharge to [facility].
[2017-04-04 07:46] LABS: BUN/Creatinine Ratio 24.2 (8-20); Calcium 9.4 mg/dL (8.6-10.3); Potassium 3.7 mmol/L (3.5-5.0)
[2017-04-04] MEDS: Aspirin Low Dose CHEW TAB* 81 MG PO SCH (07:59)
[2017-04-04] MEDS: Apixaban* 5 MG TAB PO SCH (07:59)
[2017-04-04] MEDS: Nystatin TOP POWDER* 15 GM BTL TOPICAL SCH (07:59)
[2017-04-04] MEDS: Ziprasidone * 20 MG CAP (generic Geodon) PO SCH (07:59)
[2017-04-04] MEDS: Polyethylene Glycol 3350* 17 GM PACKET PO SCH (07:59)
[2017-04-04] MEDS: DULoxetine DR CAP* 60 MG CAP.DR PO SCH (07:59)
[2017-04-04] MEDS: Allopurinol TAB* 300 MG PO SCH (07:59)
[2017-04-04] MEDS ORDERED: Torsemide TAB* 20 MG PO SCH (09:00)
[2017-04-04] MEDS ORDERED: Propranolol LA CAP* 60 MG PO SCH (09:00)
--- NOTE | 2017-04-04 09:25 | DS ---
CC: LUIS Azar; [facility] MEDICINE DISCHARGE SUMMARY: DATE OF ADMISSION: 03/29/17 DATE OF DISCHARGE: 04/04/17 ATTENDING PHYSICIAN: Bianka Kidd MD *(dictation provided by aKitlin Roberts NP) PRIMARY CARE PHYSICIAN: LUIS Azar PRIMARY DIAGNOSES: 1. Sepsis. 2. Urinary tract infection. 3. Acute on chronic congestive heart failure exacerbation, now resolved. 4. Acute kidney injury, improved. SECONDARY DIAGNOSES: 1. Hypertension. 2. Insomnia. 3. Atrial fibrillation, on Xarelto. 4. Gastroesophageal reflux disease. 5. Anxiety. 6. Depression, history of suicide attempt three years ago, on Ambien. 7. Evidence of an inferior myocardial infarction. 8. Former smoker. 9. Former alcoholic. 10. Gout. MEDICATIONS: At the time of discharge; 1. Hydrocodone/acetaminophen 7.5/325 one tab p.o. q.6 hours. 2. MiraLAX 17 grams p.o. daily. 3. Cymbalta 60 mg p.o. daily. 4. Atorvastatin 20 mg p.o. q. p.m. 5. Allopurinol 300 mg p.o. daily. 6. Lunesta 3 mg p.o. at bedtime. 7. Apixaban 5 mg p.o. b.i.d. 8. Pepcid 40 mg p.o. at bedtime. 9. Geodon 40 mg p.o. b.i.d. 11. Remeron 60 mg p.o. at bedtime. 11. Torsemide 20 mg p.o. daily (newly started medication). 12. Bactrim DS one tab p.o. b.i.d. x4 days (for urinary tract infection with sepsis). 13. Propranolol LA 60 mg p.o. daily. 14. Nystatin powder topically b.i.d. 15. Baclofen 5 mg p.o. q. 12h p.r.n. muscle spasms (new medication). HOSPITAL COURSE: Mr. Kirk is an 81-year-old male with a past medical history as outlined above, who presented to the emergency room on 03/29/17 with concern for inability to rise from the toilet. Please see the dictated H and P from Dr. Ángel Cohen for complete details. In brief, at the time of admission he had an elevated troponin and signs and symptoms of acute on chronic congestive heart failure exacerbation which was felt to explain his weakness. Mr. Kirk had a transthoracic echocardiogram on 03/29/17 which was read as follows: "There is global hypokinesis of the left ventricle with minor regional variation; relative hypokinesis of the inferobasal segments compared to the other regions. There is moderately decreased left ventricular systolic function. The estimated ejection fraction is 40% to 45%. There is septal flattening of the interventricular septum consistent with right ventricular volume or pressure overload". There is moderate tricuspid regurgitation noted and moderate pulmonary hypertension, but no other significant valvular abnormalities. The patient was treated with aggressive diuretics. On the evening of 03/30/17, the patient developed worsening crackles and shortness of breath. He was given additional Lasix and was transferred to the Intensive Care Unit for initiation of BIPAP therapy. By the following morning, he was feeling much better in terms of his respiratory status. Mr. Kirk was also found to have a urinary tract infection which ultimately grew E. coli with greater than 100,000 colonies. For this he was originally treated with cefepime. When sensitivity results were available, he was transitioned over to ceftriaxone and has completed 6 days of therapy inpatient. A plan to complete a 10-day course with the addition of Bactrim. Based on SIRS criteria, the patient did meet sepsis. Though he required the initiation of BiPAP therapy, he did not require mechanical ventilation and though he did have an elevated creatinine during this hospitalization, it was not significant enough to meet severe sepsis criteria. Overall Mr. Kirk is doing much better. He is breathing easily. He is not requiring any oxygen. He has had good urine output and resolution of his pulmonary edema. In the past, the patient has been on torsemide and plan to continue a low dose of torsemide at 20 mg p.o. daily. During this hospitalization, the patient's BUN and creatinine did rise from initial creatinine of 1.09 to a peak of 1.43. Today, it is 1.24. I do think the patient needs continued diuresis, but that his basic metabolic panel should be monitored very closely and I have written for a repeat lab in one week to help guide further diuresis. I spoke with Mr. Kirk at length regarding his goals of care. He is adamant that he would like to continue with the Penaloza catheter in place. I have spoken to him about the risk of infection with urinary tract infections that could lead to severe illness and even . He states understanding of such and states that in general he would like to proceed with minimally invasive limited interventions that promote his comfort. He would be interested in antibiotics if needed, or perhaps IV fluids, but that he would not want any aggressive interventions. To that end, I did discuss with him his mildly elevated troponin which peaked at 0.19 during this hospitalization. I suspect this is due to demand ischemia in the setting of sepsis and CHF. I explained to the patient that options include outpatient stress testing and possible cardiac catheterization and, again, he states he would only want limited medical interventions. He is a DNR. Mr. Kirk is medically stable for discharge. He has been accepted to [facility] in [place] and will be discharged there today. DISPOSITION: To [facility]. DIET: Low salt. ACTIVITY: As tolerated. FOLLOWUP APPOINTMENTS: Please follow up with the doctors at [facility] as needed, most specifically for monitoring of BUN and creatinine, on torsemide therapy. TIME SPENT: Approximately 60 minutes was spent on the discharge of this patient , more than half the time was spent with the patient at the bedside reviewing the events leading up to this hospitalization, performing the physical examination and reviewing my plan of care. KAITLIN ROBERTS NP [id number]/NIMA #: [id number] MACARENA
[2017-04-04 11:29] VITALS: BP 145/55
[2017-04-04] MEDS ORDERED: Furosemide IV* 10 MG/ML 10 ML VIAL (100 MG) IV SCH (21:00)
== END 2017-04-04 12:40 | DRG 871 ==
LOC: ED 11:20 → MEDTELE 12:35 → ICU 20:07 → MEDTELE 03-31 15:29
PROVIDERS: ADMIT Internal Medicine; ATTEND Internal Medicine
DX: A41.9 Sepsis, unspecified organism (principal); I50.33 Acute on chronic diastolic (congestive) heart failure; J96.01 Acute respiratory failure with hypoxia; N17.9 Acute kidney failure, unspecified; N39.0 Urinary tract infection, site not specified; E87.2 Acidosis; F33.9 Major depressive disorder, recurrent, unspecified; I24.8 Other forms of acute ischemic heart disease; B96.20 Unspecified Escherichia coli [E. coli] as the cause of diseases classified elsewhere; I11.0 Hypertensive heart disease with heart failure; G47.00 Insomnia, unspecified; I48.91 Unspecified atrial fibrillation; F41.9 Anxiety disorder, unspecified; M10.9 Gout, unspecified; F10.21 Alcohol dependence, in remission; I36.1 Nonrheumatic tricuspid (valve) insufficiency; I27.20 Pulmonary hypertension, unspecified; Z66 Do not resuscitate; H54.8 Legal blindness, as defined in USA; I45.10 Unspecified right bundle-branch block; F03.90 Unspecified dementia, unspecified severity, without behavioral disturbance, psychotic disturbance, mood disturbance, and anxiety; Z87.891 Personal history of nicotine dependence; I25.2 Old myocardial infarction; Z79.01 Long term (current) use of anticoagulants; Z79.899 Other long term (current) drug therapy; Z82.49 Family history of ischemic heart disease and other diseases of the circulatory system; Z84.1 Family history of disorders of kidney and ureter; R31.9 Hematuria, unspecified
CPT/HCPCS: 36415; 36600; 71010; 80048; 80053; 80061; 80202; 81003; 81015; 82550; 82553; 82803; 83036; 83605; 83735; 83880; 84132; 84145; 84436; 84443; 84484; 85025; 85610; 85730; 87040; 87077; 87086; 87186; 87493; 87641; 93005; 93306; 94640; 94660; A9270-GY; J0692; J0696; J1940; J3370; J3475; J3480